=== PATIENT | female | born 1995 | race Caucasian/White ===

== ENCOUNTER → 2016-09-22 | Outpatient (REF) | payer OTHER, MEDICAID | END | disposition home or self-care (01) | LOC: M LAB REF 16:49 | PROVIDERS: ATTEND Advanced Practice Midwife | DX: Z34.81 Encounter for supervision of other normal pregnancy, first trimester (principal); Z36 Encounter for antenatal screening of mother; Z3A.00 Weeks of gestation of pregnancy not specified ==

== ENCOUNTER → 2016-10-16 | Outpatient (REF) | payer OTHER, MEDICAID | LOC: M LAB REF 17:00 | PROVIDERS: ATTEND Specialist | DX: Z34.82 Encounter for supervision of other normal pregnancy, second trimester (principal); Z36 Encounter for antenatal screening of mother; Z3A.00 Weeks of gestation of pregnancy not specified ==

== ENCOUNTER 2016-10-23 04:40 | Emergency (ER) | payer MEDICAID, OTHER ==
--- NOTE | 2016-10-23 06:00 | REPUSA ---
CLINICAL HISTORY: Pelvic pain. TECHNIQUE: Realtime sonographic images were obtained in multiple projections via TA approach. The exa mination was performed by the semi truck driver and still images were submitted for interpretation. COMMENTS: A single, live intrauterine gestation. Biparietal diameter 3.4 cm. 16 weeks and 3 days. Head circumference 12.4 cm. 16 weeks and one day. Abdominal circumference 10 cm. 16 weeks. Femoral length 2.1 cm. 16 weeks and 2 days. Humeral length 2 cm. 16 weeks and 5 days. heart rate 152 beats per minute. Cervical length 3.6 cm. Estimated weight 148 g. Breech presentation. No evidence of placenta previa or placental abruption. Posterior/fundal placenta. Evaluation of the maternal adnexa and cul-de-sac reveals no abnormalities. IMPRESSION: Single, live intrauterine gestation. No abnormality is seen. Estimated gestation age 16 weeks and one day. Estimated delivery date on . Thank you for your kind referral of this patient.
[2016-10-23] MEDS ORDERED: cefTRIAXone SOD 1 GM VIAL (J0696) As Ordered ONE (06:41)
[2016-10-23] MEDS ORDERED: LIDOCAINE 1% MDV 20ML VIAL As Ordered ONE (06:42)
--- NOTE | 2016-10-23 07:31 | EDDOCDS ---
Physician Documentation [facility] Name: Anastacia Lovell Age: 21 yrs Sex: Female : 1995 Arrival Date: 10/23/2016 Time: 04:40 Bed 7 Private MD: Disposition: 10/23/16 06:26 Discharged to Home/Self Care. Impression: Urinary tract infection, site not specified. - Condition is Stable. - Prescriptions for Keflex 500 mg Oral Capsule - take 1 capsule by ORAL route every 6 hours for 10 days; 40 capsule. - Medication Reconciliation, Local Pharmacy Hours form. - Follow up: Private Physician; When: 1 - 2 days; Reason: Recheck today's complaints. - Problem is an ongoing problem. - Symptoms have improved. Historical: - Allergies: no known allergies; - Home Meds: 1. Vitamin Oral tab 1 tab once daily - PMHx: none; - PSHx: none; - Social history: Smoking status: Patient states former smoker of tobacco. No barriers to communication noted, The patient speaks fluent Swedish, Speaks appropriately for age. - Family history: Not pertinent. - : The pt / caregiver states he / she is not on anticoagulants. Home medication list is obtained from the patient. - Exposure Risk Screening:: None identified. 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 2 in. (157.48 cm); Pain 7/10; 06:28 BP 115 / 56; Pulse 72; Resp 18; Temp 97.9(TE); Pulse Ox 100% on R/A; Pain 0/10; mikael 04:46 Body Mass Index 36.58 (90.72 kg, 157.48 cm) kc3 MDM: 05:08 US OBS JOANA LUJAN Ordered. EDMS 05:52 Financial registration complete. hs2 05:52 [facility] Payment Agreement was scanned into [employer] and attached to record. hs2 06:19 cefTRIAXone 1 grams IM once ordered. cs11 Administered Medications: 06:51 Drug: cefTRIAXone 1 grams [ceftriaxone 1 gram solution for injection (1 grams)] Route: kmg1 IM; Site: left gluteus; Signatures: Dispatcher [employer] EDMS Sonia Sierra RN RN kmg1 Socrates HutchinsRN RN zoëk Ciaran Diaz, DO cs11 Zeynep EasleyRN RN kc3 Janene Ratliff, Reg Reg hs2 The chart was reviewed and I authenticate all verbal orders and agree with the evaluation and treatment provided.Corrections: (The following items were deleted from the chart) 05:08 05:05 1ST TRIMESTER US+US ordered. EDMS EDMS Attachments: 05:52 [facility] Payment Agreement hs2 MTDD
--- NOTE | 2016-10-23 07:31 | EDDOCDS ---
Nurse's Notes [facility] Name: Anastacia Lovell Age: 21 yrs Sex: Female : 1995 Arrival Date: 10/23/2016 Time: 04:40 Bed 7 Private MD: Diagnosis: Urinary tract infection, site not specified Presentation: 10/23 04:47 Presenting complaint: Patient states: left low back pain x 2 days worsening 1 hour lpta. kc3 Pt reports was also seen by OB and started on Bactrim on Sunday but reports has not started taking medication yet. Adult Sepsis Screening: The patient does not have new or worsening altered mentation. Patient's respiratory rate is less than 22. Systolic blood pressure is greater than 100. Patient has a qSOFA score of 0- Negative Sepsis Screen. Suicide/Homicide risk assessment- the patient denies having any suicidal and/or homicidal ideations and does not present with any other emotional, behavioral or mental health complaints. 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 Transition of care: patient was not received from another setting of care. 04:47 Acuity: ALBERTO Level 4 kc3 04:47 Method Of Arrival: Walkin/Carried/Asstd kc3 Triage Assessment: 04:50 General: Appears uncomfortable, Behavior is appropriate for age, cooperative. Pain: kc3 Location: low back area Pain currently is 7 out of 10 on a pain scale. HIV screening NA for this visit Offered previously. Respiratory: No deficits noted. 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 Vitamin Oral tab 1 tab once daily - PMHx: none; - PSHx: none; - Social history: Smoking status: Patient states former smoker of tobacco. No barriers to communication noted, The patient speaks fluent Luxembourgish, Speaks appropriately for age. - Family history: Not pertinent. - : The pt / caregiver states he / she is not on anticoagulants. Home medication list is obtained from the patient. - Exposure Risk Screening:: None identified. Screenin:00 Screening information is obtained from the patient. Fall risk: No risks identified. kmg1 Assistance ADL's: requires no assistance with activities of daily living. Abuse/DV Screen: The patient / caregiver reports he/she is: not in a situation that causes fear, pain or injury. Nutritional screening: No deficits noted. Advance Directives: There is no active DNR order. home support is adequate. Assessment: 05:00 General: Appears in no apparent distress, comfortable, Behavior is appropriate for age, kmg1 cooperative, pleasant. Pain: Location: low back area Pain currently is 7 out of 10 on a pain scale. Respiratory: Airway is patent Respiratory effort is even, unlabored, Respiratory pattern is regular, symmetrical. : Reports urgency urinary frequency. 06:12 Reassessment: Patient appears in no apparent distress at this time. Patient states km symptoms have not improved. No change in prior assessment. General:. 07:25 General: Appears in no apparent distress. [facility] Vital Signs: 04:46 BP 128 / 75; Pulse 87; Resp 18; Temp 97.3(O); Pulse Ox 98% on R/A; Weight 90.72 kg; kc3 Height 5 ft. 2 in. (157.48 cm); Pain 7/10; 06:28 BP 115 / 56; Pulse 72; Resp 18; Temp 97.9(TE); Pulse Ox 100% on R/A; Pain 0/10; mikael 04:46 Body Mass Index 36.58 (90.72 kg, 157.48 cm) [facility] Vitals: 04:46 Log In Time: October 23, 2016 at 04:46. [facility] ED Course: 04:41 Patient visited by Janene Ratliff Reg. hs2 04:41 Patient moved to Waiting hs2 04:50 Triage Initiated kc3 04:51 Patient moved to 7 [facility] 05:00 The patient / caregiver is instructed regarding the plan of care and ED course. kmg1 05:06 Ciaran Diaz DO is Attending Physician. cs11 05:06 Patient visited by Ciaran Diaz DO. cs11 05:08 Patient moved to Ultrasound dmg 05:29 Patient moved to 7 dmg 05:52 [facility] Payment Agreement was scanned into [employer] and attached to record. hs2 06:00 US OBS JOANA LUJAN Returned. EDMS 06:13 Patient visited by Sonia Sierra, SLIME. kmg1 06:29 Patient visited by Lucie Cole PCA. mikael 06:51 Patient visited by Sonia Sierra RN. kmg1 07:25 No IV's were initiated during this patient's visit. No procedures done that require k assistance. Administered Medications: 06:51 Drug: cefTRIAXone 1 grams [ceftriaxone 1 gram solution for injection (1 grams)] Route: kmg1 IM; Site: left gluteus; Order Results: Radiology Order: US OBS SINGEL GEST Test: US OBS SINGEL GEST REASON FOR EXAMINATION: Abdomen Pain; ; CLINICAL HISTORY: Pelvic pain.; TECHNIQUE: Realtime sonographic images were obtained in multiple projections via TA approach. The exa; mination was performed by the federal java developer and still images were submitted for interpretation.; COMMENTS:; A single, live intrauterine gestation.; Biparietal diameter 3.4 cm. 16 weeks and 3 days.; Head circumference 12.4 cm. 16 weeks and one day.; Abdominal circumference 10 cm. 16 weeks.; Femoral length 2.1 cm. 16 weeks and 2 days.; Humeral length 2 cm. 16 weeks and 5 days.; heart rate 152 beats per minute.; Cervical length 3.6 cm.; Estimated weight 148 g.; Breech presentation.; No evidence of placenta previa or placental abruption.; Posterior/fundal placenta.; Evaluation of the maternal adnexa and cul-de-sac reveals no abnormalities.; IMPRESSION:; Single, live intrauterine gestation.; No abnormality is seen.; Estimated gestation age 16 weeks and one day. Estimated delivery date on .; Thank you for your kind referral of this patient.; ; Outcome: 06:26 Discharge ordered by Provider. cs11 07:25 Discharge Assessment: Patient awake, alert and oriented x 3. No cognitive and/or k functional deficits noted. Patient verbalized understanding of disposition instructions. patient administered narcotics - no. The following High Risk Discharge criteria are identified: None. Discharged to home ambulatory. Condition: good. Discharge instructions given to patient, Instructed on discharge instructions, follow up and referral plans. medication usage, Demonstrated understanding of instructions, medications, Pt was receptive of discharge instructions/ teaching. Prescriptions given X 1. No special radiology studies were completed. Property :Personal belongings accompany Pt. 07:31 Patient left the ED. rena Signatures: Dispatcher [facility] Sonia Sierra RN RN kmSocrates Romeo RN RN Catia Zelaya, Lucie, LITHOGRAPH OPERATOR LITHOGRAPH OPERATOR mikael Ciaran Diaz, DO DO cs11 Zeynep Easley,RN RN kc3 Janene Ratliff, Reg Reg hs2 MTDD
--- NOTE | 2016-10-25 08:32 | EDDOCDS ---
Physician Documentation [facility] Name: Anastacia Lovell Age: 21 yrs Sex: Female : 1995 Arrival Date: 10/23/2016 Time: 04:40 Bed 7 Private MD: Disposition: 10/23/16 06:26 Discharged to Home/Self Care. Impression: Urinary tract infection, site not specified. - Condition is Stable. - Prescriptions for Keflex 500 mg Oral Capsule - take 1 capsule by ORAL route every 6 hours for 10 days; 40 capsule. - Medication Reconciliation, Local Pharmacy Hours form. - Follow up: Private Physician; When: 1 - 2 days; Reason: Recheck today's complaints. - Problem is an ongoing problem. - Symptoms have improved. Historical: - Allergies: no known allergies; - Home Meds: 1. Vitamin Oral tab 1 tab once daily - PMHx: none; - PSHx: none; - Social history: Smoking status: Patient states former smoker of tobacco. No barriers to communication noted, The patient speaks fluent Namibian, Speaks appropriately for age. - Family history: Not pertinent. - : The pt / caregiver states he / she is not on anticoagulants. Home medication list is obtained from the patient. - Exposure Risk Screening:: None identified. MOTORIZED SQUAD LIEUTENANT: 10/23 04:46 Verified kc3 Vital Signs: 04:46 BP 128 / 75; Pulse 87; Resp 18; Temp 97.3(O); Pulse Ox 98% on R/A; Weight 90.72 kg / kc3 200 lbs; Height 5 ft. 2 in. (157.48 cm); Pain 7/10; 06:28 BP 115 / 56; Pulse 72; Resp 18; Temp 97.9(TE); Pulse Ox 100% on R/A; Pain 0/10; mikael 04:46 Body Mass Index 36.58 (90.72 kg, 157.48 cm) kc3 MDM: 05:08 US OBS JOANA LUJAN Ordered. EDMS 05:52 Financial registration complete. hs2 05:52 ON LICENSE OF [facility] Payment Agreement was scanned into [employer] and attached to record. hs2 06:19 cefTRIAXone 1 grams IM once ordered. cs11 Administered Medications: 06:51 Drug: cefTRIAXone 1 grams [ceftriaxone 1 gram solution for injection (1 grams)] Route: kmg1 IM; Site: left gluteus; Signatures: Dispatcher [employer] EDMS Sonia Sierra RN RN kmg1 Socrates HutchinsRN RN zoëk Ciaran Diaz, DO cs11 Zeynep EasleyRN RN kc3 Janene Ratliff, Reg Reg hs2 The chart was reviewed and I authenticate all verbal orders and agree with the evaluation and treatment provided.Corrections: (The following items were deleted from the chart) 05:08 05:05 1ST TRIMESTER US+US ordered. EDMS EDMS Attachments: 05:52 ON LICENSE OF [facility] Payment Agreement hs2 Chart Complete MTDD
--- NOTE | 2016-10-25 08:32 | EDDOCDS ---
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 kc3 Pt reports was also seen by OB and started on Bactrim on Sunday but reports has not started taking medication yet. Adult Sepsis Screening: The patient does not have new or worsening altered mentation. Patient's respiratory rate is less than 22. Systolic blood pressure is greater than 100. Patient has a qSOFA score of 0- Negative Sepsis Screen. Suicide/Homicide risk assessment- the patient denies having any suicidal and/or homicidal ideations and does not present with any other emotional, behavioral or mental health complaints. Status: Patient is not a marketing services rep or dependent. Transition of care: patient was not received from another setting of care. 04:47 Acuity: ALBERTO Level 4 kc3 04:47 Method Of Arrival: Walkin/Carried/Asstd kc3 Triage Assessment: 04:50 General: Appears uncomfortable, Behavior is appropriate for age, cooperative. Pain: kc3 Location: low back area Pain currently is 7 out of 10 on a pain scale. HIV screening NA for this visit Offered previously. Respiratory: No deficits noted. GROOVER RUNNER: 04:46 Verified kc3 Historical: - Allergies: no known allergies; - Home Meds: 1. Vitamin Oral tab 1 tab once daily - PMHx: none; - PSHx: none; - Social history: Smoking status: Patient states former smoker of tobacco. No barriers to communication noted, The patient speaks fluent Turkish, Speaks appropriately for age. - Family history: Not pertinent. - : The pt / caregiver states he / she is not on anticoagulants. Home medication list is obtained from the patient. - Exposure Risk Screening:: None identified. Screenin:00 Screening information is obtained from the patient. Fall risk: No risks identified. kmg1 Assistance ADL's: requires no assistance with activities of daily living. Abuse/DV Screen: The patient / caregiver reports he/she is: not in a situation that causes fear, pain or injury. Nutritional screening: No deficits noted. Advance Directives: There is no active DNR order. home support is adequate. Assessment: 05:00 General: Appears in no apparent distress, comfortable, Behavior is appropriate for age, kmg1 cooperative, pleasant. Pain: Location: low back area Pain currently is 7 out of 10 on a pain scale. Respiratory: Airway is patent Respiratory effort is even, unlabored, Respiratory pattern is regular, symmetrical. : Reports urgency urinary frequency. 06:12 Reassessment: Patient appears in no apparent distress at this time. Patient states km symptoms have not improved. No change in prior assessment. General:. 07:25 General: Appears in no apparent distress. [facility] Vital Signs: 04:46 BP 128 / 75; Pulse 87; Resp 18; Temp 97.3(O); Pulse Ox 98% on R/A; Weight 90.72 kg; kc3 Height 5 ft. 2 in. (157.48 cm); Pain 7/10; 06:28 BP 115 / 56; Pulse 72; Resp 18; Temp 97.9(TE); Pulse Ox 100% on R/A; Pain 0/10; mikael 04:46 Body Mass Index 36.58 (90.72 kg, 157.48 cm) [facility] Vitals: 04:46 Log In Time: October 23, 2016 at 04:46. [facility] ED Course: 04:41 Patient visited by Janene Ratliff Reg. hs2 04:41 Patient moved to Waiting hs2 04:50 Triage Initiated kc3 04:51 Patient moved to 7 [facility] 05:00 The patient / caregiver is instructed regarding the plan of care and ED course. kmg1 05:06 Ciaran Diaz DO is Attending Physician. cs11 05:06 Patient visited by Ciaran Diaz DO. cs11 05:08 Patient moved to Ultrasound dmg 05:29 Patient moved to 7 dmg 05:52 [facility] [place] [facility] Payment Agreement was scanned into [employer] and attached to record. hs2 06:00 US OBS JOANA LUJAN Returned. EDMS 06:13 Patient visited by Sonia Sierra, SLIME. kmg1 06:29 Patient visited by Lucie Cole PCA. mikael 06:51 Patient visited by Sonia Sierra RN. kmg1 07:25 No IV's were initiated during this patient's visit. No procedures done that require k assistance. Administered Medications: 06:51 Drug: cefTRIAXone 1 grams [ceftriaxone 1 gram solution for injection (1 grams)] Route: kmg1 IM; Site: left gluteus; Order Results: Radiology Order: US OBS SINGEL GEST Test: US OBS SINGEL GEST REASON FOR EXAMINATION: Abdomen Pain; ; CLINICAL HISTORY: Pelvic pain.; TECHNIQUE: Realtime sonographic images were obtained in multiple projections via TA approach. The exa; mination was performed by the transportation officer and still images were submitted for interpretation.; COMMENTS:; A single, live intrauterine gestation.; Biparietal diameter 3.4 cm. 16 weeks and 3 days.; Head circumference 12.4 cm. 16 weeks and one day.; Abdominal circumference 10 cm. 16 weeks.; Femoral length 2.1 cm. 16 weeks and 2 days.; Humeral length 2 cm. 16 weeks and 5 days.; heart rate 152 beats per minute.; Cervical length 3.6 cm.; Estimated weight 148 g.; Breech presentation.; No evidence of placenta previa or placental abruption.; Posterior/fundal placenta.; Evaluation of the maternal adnexa and cul-de-sac reveals no abnormalities.; IMPRESSION:; Single, live intrauterine gestation.; No abnormality is seen.; Estimated gestation age 16 weeks and one day. Estimated delivery date on .; Thank you for your kind referral of this patient.; ; Outcome: 06:26 Discharge ordered by Provider. cs11 07:25 Discharge Assessment: Patient awake, alert and oriented x 3. No cognitive and/or k functional deficits noted. Patient verbalized understanding of disposition instructions. patient administered narcotics - no. The following High Risk Discharge criteria are identified: None. Discharged to home ambulatory. Condition: good. Discharge instructions given to patient, Instructed on discharge instructions, follow up and referral plans. medication usage, Demonstrated understanding of instructions, medications, Pt was receptive of discharge instructions/ teaching. Prescriptions given X 1. No special radiology studies were completed. Property :Personal belongings accompany Pt. 07:31 Patient left the ED. rena Signatures: Dispatcher [facility] Sonia Sierra RN RN kmSocrates Romeo RN RN Catia Zelaya, Lucie, GRAVITY PROSPECTING SUPERVISOR GRAVITY PROSPECTING SUPERVISOR mikael Ciaran Diaz, DO DO cs11 Zeynep Easley,RN RN kc3 Janene Ratliff, Reg Reg hs2 Chart Complete MTDD
--- NOTE | 2016-10-25 08:32 | EDDOCDS ---
Physician Documentation [facility] Name: Anastacia Lovell Age: 21 yrs Sex: Female : 1995 Arrival Date: 10/23/2016 Time: 04:40 Bed 7 Private MD: Disposition: 10/23/16 06:26 Discharged to Home/Self Care. Impression: Urinary tract infection, site not specified. - Condition is Stable. - Prescriptions for Keflex 500 mg Oral Capsule - take 1 capsule by ORAL route every 6 hours for 10 days; 40 capsule. - Medication Reconciliation, Local Pharmacy Hours form. - Follow up: Private Physician; When: 1 - 2 days; Reason: Recheck today's complaints. - Problem is an ongoing problem. - Symptoms have improved. Historical: - Allergies: no known allergies; - Home Meds: 1. Vitamin Oral tab 1 tab once daily - PMHx: none; - PSHx: none; - Social history: Smoking status: Patient states former smoker of tobacco. No barriers to communication noted, The patient speaks fluent Hungarian, Speaks appropriately for age. - Family history: Not pertinent. - : The pt / caregiver states he / she is not on anticoagulants. Home medication list is obtained from the patient. - Exposure Risk Screening:: None identified. GANG LEADER: 10/23 04:46 Verified kc3 Vital Signs: 04:46 BP 128 / 75; Pulse 87; Resp 18; Temp 97.3(O); Pulse Ox 98% on R/A; Weight 90.72 kg / kc3 200 lbs; Height 5 ft. 2 in. (157.48 cm); Pain 7/10; 06:28 BP 115 / 56; Pulse 72; Resp 18; Temp 97.9(TE); Pulse Ox 100% on R/A; Pain 0/10; mikael 04:46 Body Mass Index 36.58 (90.72 kg, 157.48 cm) kc3 MDM: 05:08 US OBS JOANA LUJAN Ordered. EDMS 05:52 Financial registration complete. hs2 05:52 [facility] Payment Agreement was scanned into [employer] and attached to record. hs2 06:19 cefTRIAXone 1 grams IM once ordered. cs11 Administered Medications: 06:51 Drug: cefTRIAXone 1 grams [ceftriaxone 1 gram solution for injection (1 grams)] Route: kmg1 IM; Site: left gluteus; Signatures: Dispatcher [employer] EDMS Sonia Sierra RN RN kmg1 Socrates HutchinsRN RN zoëk Ciaran Diaz, DO cs11 Zeynep EasleyRN RN kc3 Janene Ratliff, Reg Reg hs2 The chart was reviewed and I authenticate all verbal orders and agree with the evaluation and treatment provided.Corrections: (The following items were deleted from the chart) 05:08 05:05 1ST TRIMESTER US+US ordered. EDMS EDMS Attachments: 05:52 [facility] Payment Agreement hs2 Chart Complete MTDD
== END 2016-10-23 07:31 | disposition home or self-care (01) ==
LOC: M ED 04:40
DX: O23.42 Unspecified infection of urinary tract in pregnancy, second trimester (principal); Z3A.17 17 weeks gestation of pregnancy; Z87.891 Personal history of nicotine dependence

== ENCOUNTER → 2016-11-13 | Outpatient (REF) | payer OTHER | LOC: M LAB REF 09:27 | PROVIDERS: ATTEND Specialist | DX: Z34.82 Encounter for supervision of other normal pregnancy, second trimester (principal); Z36 Encounter for antenatal screening of mother; Z3A.00 Weeks of gestation of pregnancy not specified ==

== ENCOUNTER → 2016-11-16 | Outpatient (CLI) | payer OTHER ==
--- NOTE | 2016-11-16 15:39 | REP ---
OB ULTRASOUND: Real-time sonographic evaluation of the gravid uterus is performed utilizing transabdominal and endovaginal technique. There is a single living intrauterine gestation, estimated gestational age 19 weeks 5 days, EDC 04/07/2017. Today's measurements indicate appropriate growth. BPD 46 mm = 20 weeks 0 days, 57th percentile HC 176 mm = 20 weeks 0 days, 61st percentile AC 150 mm = 20 weeks 2 days, 62nd percentile Femur length 32 mm = 20 weeks 0 days, 57th percentile SEEN/GROSSLY UNREMARKABLE Lateral ventricles Yes Posterior fossa Yes Upper lip Yes Four-chamber heart Yes echogenic focus in the left ventricle likely related to chordae tendineae LVOT Yes RVOT Yes Stomach Yes Cord insertion Yes Three vessel cord Yes Kidneys Yes Bladder Yes Spine Yes position: Transverse with the head towards the maternal left side. Placenta: Posterior and fundal and grade 0 with no previa or abruption. Amniotic fluid: Within normal limits. There is no evidence of placenta previa or vasa previa. Signed by Anshu Norris MD 11/17/2016 01:19 P
== END ==
LOC: M RAD 13:36
PROVIDERS: ATTEND Specialist
DX: Z34.82 Encounter for supervision of other normal pregnancy, second trimester (principal); Z36 Encounter for antenatal screening of mother; Z3A.20 20 weeks gestation of pregnancy

== ENCOUNTER → 2016-11-28 | Outpatient (REF) | payer OTHER | LOC: M SFHCLERA 12:42 | PROVIDERS: ATTEND Nurse Practitioner Family | DX: J02.9 Acute pharyngitis, unspecified (principal) ==

== ENCOUNTER → 2016-12-20 | Outpatient (REF) | payer OTHER | LOC: M LAB REF 16:58 | PROVIDERS: ATTEND Obstetrics & Gynecology | DX: Z34.82 Encounter for supervision of other normal pregnancy, second trimester (principal); Z36 Encounter for antenatal screening of mother; Z3A.00 Weeks of gestation of pregnancy not specified; R30.0 Dysuria ==

== ENCOUNTER → 2017-01-09 | Outpatient (CLI) | payer OTHER ==
[2017-01-09 18:15] LABS: BASO % 0.1 % (0.0-1.0); EOS # 0.1 K/mm3 (0.0-0.50); LARGE UNSTAINED CELL # 0.1 K/mm3 (0.0-0.4); LARGE UNSTAINED CELL % 1.3 % (0.0-4.0); LYMPH # 1.4 K/mm3 (1.5-6.5); LYMPH % 16.1 % (24.0-44.0); MEAN CORPUSCULAR HEMOGLOBIN 28.9 pg (27.0-33.0); MEAN CORPUSCULAR HGB CONC 33.1 g/dl (32.0-36.5); MEAN CORPUSCULAR VOLUME 87.1 fl (80.0-96.0); MONO # 0.4 K/mm3 (0.0-0.8); MONO % 4.4 % (0.0-5.0); NEUTROPHILS # 6.9 K/mm3 (1.8-7.7); PLATELET COUNT, AUTOMATED 350 k/mm3 (150-450); RED CELL DISTRIBUTION WIDTH 12.8 % (11.5-14.5); WHITE BLOOD COUNT 8.9 K/mm3 (4.0-10.0)
== END ==
LOC: M SMT 13:13
PROVIDERS: ATTEND Advanced Practice Midwife
DX: Z34.83 Encounter for supervision of other normal pregnancy, third trimester (principal); Z36 Encounter for antenatal screening of mother; Z3A.00 Weeks of gestation of pregnancy not specified

== ENCOUNTER 2017-03-04 14:13 | Outpatient (CLI) | payer OTHER ==
--- NOTE | 2017-03-04 17:08 | REP ---
Clinical: well-being. Comparison: 11/16/2016 . Findings: Examination demonstrates a single live advanced intrauterine in cephalic presentation. motion is identified by technologist. Placenta is noted posterior fundally and grade zero without evidence for placenta previa or abruption. Amniotic fluid volume is normal. Cervix measures 4.9 cm in length and appears closed. No evidence for nuchal cord. Gestational age by LMP 35 weeks 1 day with KJ 04/07/2017 . Gestational age by current measurements 35 weeks 1 day with KJ 04/07/2017 . FHR varied between 108 - 136 beats per minute. BPD 8.7 cm 35 weeks 1 day HC 31.3 cm 35 weeks 0 days AC 31.4 cm 35 weeks 2 days FL 6.8 cm 35 weeks 0 days HL 6.0 cm 35 weeks 0 days HC/AC ratio 1.00 Estimated weight 2614 grams ( 50th percentile). Biophysical profile score equals 8/8. Amniotic fluid index equals 16.2 cm (7.9 - 24.9). Umbilical cord SD ratio equals 2.13 Impression: Single live advanced gestation in cephalic presentation demonstrating appropriate interval growth. No gross abnormalities. Findings as above. Signed by Kashif Bradley MD 03/04/2017 05:00 P
== END 2017-03-04 17:30 | disposition home or self-care (01) ==
LOC: EDBD → M LDO 14:13
PROVIDERS: ATTEND Advanced Practice Midwife
DX: O26.853 Spotting complicating pregnancy, third trimester (principal); Z3A.35 35 weeks gestation of pregnancy

== ENCOUNTER 2017-04-03 20:51 | Outpatient (CLI) | payer OTHER ==
[~2017-04-03] VITALS: Ht 157.5 cm; Wt 95.0 kg
[2017-04-03 21:00] VITALS: BP 116/68
== END 2017-04-03 21:40 | disposition home or self-care (01) ==
LOC: M LDO 20:51 → EDBD 20:51 → M LDO 21:40
PROVIDERS: ATTEND Obstetrics & Gynecology
DX: O47.1 False labor at or after 37 completed weeks of gestation (principal); Z3A.39 39 weeks gestation of pregnancy

== ENCOUNTER 2017-04-08 22:02 | Inpatient (IN) | payer OTHER ==
[~2017-04-08] VITALS: Ht 157.5 cm; Wt 96.0 kg
[~2017-04-08 22:02] MED LIST: hydrOXYzine 50 MG TAB PO SCH
[2017-04-08 22:12] VITALS: BP 121/76
[2017-04-08] MEDS ORDERED: PENICILLIN G POTASSIUM IV 5 MU in D5W MINI-BAG PLUS 100 ML IV STA (22:25)
[2017-04-08] MEDS ORDERED: LACTATED RINGER'S 1000 ML IV STA (22:25)
[2017-04-08] MEDS ORDERED: LR 1,000 ML IV SCH (22:25)
[2017-04-08] MEDS ORDERED: miSOPROStol 50 MCG 1/2 TAB (S0191) PO ONE (22:30)
[2017-04-08 22:43] LABS: MEAN CORPUSCULAR HEMOGLOBIN 26.8 pg (27.0-33.0); MEAN CORPUSCULAR HGB CONC 32.9 g/dl (32.0-36.5); MEAN CORPUSCULAR VOLUME 81.5 fl (80.0-96.0); RED CELL DISTRIBUTION WIDTH 14.3 % (11.5-14.5); WHITE BLOOD COUNT 9.4 K/mm3 (4.0-10.0)
[2017-04-08 22:54] VITALS: BP 121/78
[2017-04-08 23:24] VITALS: BP 117/68
[2017-04-08 23:54] VITALS: BP 119/74
[2017-04-09] VITALS (41 sets, daily range): BP systolic 92–144; BP diastolic 53–90
[2017-04-09] MEDS: PENICILLIN G POTASSIUM IV 2.5 MU in D5W 100 ML IV SCH ×3 (02:58→11:12)
[2017-04-09] MEDS ORDERED: BUTORPHANOL 2 MG/ML INJ (J0595) IV PRN (03:30)
[2017-04-09] MEDS ORDERED: OXYTOCIN DRIP 30 UNITS in APPROPRIATE DILUENT 1 EA IV SCH ×2 (03:30→17:11)
[2017-04-09] MEDS ORDERED: PROMETHAZINE INJ 25 MG/ML VIAL (J2550) IV PRN (03:30)
[2017-04-09] MEDS ORDERED: FENTANYL 2MCG/ML ROPIVACAINE 0.2% IN 0.9% NACL 200ML IVBAG As Ordered ONE (05:31)
[2017-04-09] MEDS ORDERED: FENTANYL/ROPIVACAINE/NACL BAG 200 ML EPIDURAL SCH (08:30)
[2017-04-09] MEDS ORDERED: EPIDURAL/PCA KEYS XX PRN (08:30)
[2017-04-09] MEDS ORDERED: REFRIGERATOR IV KEYS XX PRN (08:30)
[2017-04-09] MEDS ORDERED: ONDANSETRON 4MG/2ML VIAL (J2405) IV PRN (08:30)
[2017-04-09] MEDS ORDERED: diphenhydrAMINE INJ 50MG/ML VIAL (J1200) IV PRN (08:30)
[2017-04-09] MEDS ORDERED: LACTATED RINGER'S 1000 ML IV PRN (08:30)
[2017-04-09] MEDS ORDERED: EPIDURAL COMMENT XX SCH (08:30)
[2017-04-09] MEDS ORDERED: NALOXONE INJ 0.4 MG/1 ML VIAL (J2310) IV PRN (08:30)
[2017-04-09] MEDS ORDERED: ePHEDrine SULFATE 25 MG/5 ML(5MG/ML) SYRINGE IV PRN (08:30)
--- NOTE | 2017-04-09 08:51 | HPE ---
DATE OF ADMISSION: 04/08/2017 HISTORY: 22-year-old, 4, para 0-0-3-0, estimated date of delivery 04/07/2017, who presents at 40 weeks 1 day with reports contractions through the day and spontaneous rupture of membranes of clear fluid at 2130. Denies bleeding. Fetus is active. Last normal menstrual period 07/01/2016 for expected date of delivery (KJ) of 04/07/2017. Sonogram at 9 weeks confirmed date. Anatomy scan within normal limits. Appropriate care. OBSTETRICAL HISTORY: 2011: Early miscarriage. 2013: Early miscarriage. 2014: Ectopic. She has no known drug allergies. MEDICAL-SURGICAL: Noncontributory. FAMILY HISTORY: Thyroid dysfunction. Mental retardation. SOCIAL HISTORY: . Father of the baby present and supportive. Denies tobacco, alcohol, drugs or abuse. History of Chlamydia. OBJECTIVE: Prepregnancy weight 180, total weight gain 35 pounds. O positive. Antibody negative. Rubella immune. VDRL, hepatitis B, hepatitis C, HIV, gonorrhea, Chlamydia all negative. Declined genetic screening. 1-hour glucose 106. Group B strep is positive. Vital signs are stable. She is in no apparent distress. Heart rate is regular. Respirations are easy. Abdomen is soft, gravid, longitudinal lie. Irregular contractions. heart 120, moderate variability with accelerations. Clear fluid draining per vagina. Sterile Vaginal Exam: 1 cm, 80% effaced, -2. ASSESSMENT: Primipara at term, premature rupture of membranes (PROM), category 1 tracing. Admit. IV fluids. Group B strep prophylaxis. Misoprostol cervical ripening. The patient plans to labor ad ester. Anticipate normal spontaneous vaginal .
[2017-04-09] MEDS ORDERED: RHOGAM 300 MCG (1500 IU) INJ (J2790) IM SCH (09:00)
[2017-04-09] MEDS ORDERED: MEASLES,MUMPS,RUBELLA VACCINE INJ (MMR-II) (90707) SC SCH (09:00)
[2017-04-09 16:55] LABS: CORD GAS ABE A -5.5; CORD GAS HCO3 A 24.9 MEQ/L; CORD GAS O2 SAT A 31.4 %; CORD GAS PCO2 A 71.1 mmHg; CORD GAS PH A 7.162 UNITS; CORD GAS PO2 A 19.4 mmHg; CORD GAS SBC A 18.4 MEQ/L; CORD GAS TCO2 A 27.1 MEQ/L
[2017-04-09 16:59] LABS: CORD GAS HCO3 V 19.6 MEQ/L; CORD GAS O2 SAT V 66.4 %; CORD GAS PH V 7.318 UNITS; CORD GAS PO2 V 30.1 mmHg; CORD GAS SBC V 18.9 MEQ/L; CORD GAS TCO2 V 20.7 MEQ/L
[2017-04-09] MEDS ORDERED: DIBUCAINE 1% OINTMENT 30GM TOP PRN (17:15)
[2017-04-09] MEDS ORDERED: MOM 30ML SUSPENSION UDC PO PRN (17:15)
[2017-04-09] MEDS ORDERED: METHYLERGONOVINE MALEATE 0.2 MG TAB PO PRN (17:15)
--- NOTE | 2017-04-09 17:49 | DN ---
DATE OF DELIVERY: 04/09/2017 TIME OF DELIVERY: 1625 hours. GENDER: Male SCORES: 8 and 9. WEIGHT: 3610 grams, 7 pounds 15 ounces. ESTIMATED BLOOD LOSS: 250 mL. ANESTHESIA: Epidural. LACERATIONS: Two first degree lateral perineal lacerations, one periurethral laceration. COUNTS: Five laparotomy sponges accounted for prior to and after delivery. Three sharps removed from delivery field. DELIVERY NOTE: On 04/09/2017 at 1625 hours, this patient, a 22-year-old 4, para 0-0-3-0, now P1, had a spontaneous vaginal delivery of a live-born male with scores of 8 and 9. Weight was 3610 grams or 7 pounds 15 ounces. Head was delivered right occiput anterior and restituted right occiput posterior, followed by the posterior shoulder and corpus, complicated by a right compound hand. The was then placed on mom for immediate bonding. The cord was clamped times two and cut by father of the baby under my direction. Cord blood and gases were obtained. The placenta was then drained and delivered grossly intact by Cast mechanism at 1634 hours. A premixed bag of 500 mL normal saline with 30 units of Pitocin was then rapidly infused along with uterine massage until the uterus was firm. On inspection, there were two first degree midline lacerations on the lateral sides of the perineum, which were repaired with 3-0 Vicryl Rapide. There was also a periurethral laceration repaired with 3-0 Vicryl Rapide. On re-inspection of the cervix, vagina and perineum were grossly intact and hemostatic. Mom and baby were recovering in stable condition. All laparotomy sponges and sharps were accounted for prior to and after delivery , according to [employer] [facility] department protocol. My preceptor for this patient encounter was Vickie Arriola CNM. The preceptor was physically present in the room during the encounter and was fully available as needed. All aspects of the patient interview, examination, medical decision-making process, and medical care plan development were reviewed and approved by the preceptor. The preceptor is aware and concurs with the plan as stated in the body of this note and will attest to such by his/her co-signature. MIAN
[2017-04-09] MEDS: PRENATAL VITAMINS CHEWABLE TABLET PO SCH (19:34)
[2017-04-09] MEDS: DOCUSATE SODIUM 100 MG CAP PO PRN (19:34)
[2017-04-09] MEDS: IBUPROFEN 800 MG TAB PO PRN (19:35)
[2017-04-10 05:32] VITALS: BP 116/69
[2017-04-10] MEDS: PRENATAL VITAMINS CHEWABLE TABLET PO SCH (09:00)
[2017-04-10] MEDS: IBUPROFEN 800 MG TAB PO PRN ×2 (09:52→20:26)
[2017-04-10] MEDS: DOCUSATE SODIUM 100 MG CAP PO PRN (09:52)
[2017-04-10 18:13] VITALS: BP 109/70
[2017-04-10] MEDS: ACETAMINOPHEN 500 MG TAB PO PRN (20:26)
[2017-04-10 20:30] VITALS: BP 109/70
[2017-04-11] MEDS: ACETAMINOPHEN 500 MG TAB PO PRN (05:54)
[2017-04-11] MEDS: IBUPROFEN 800 MG TAB PO PRN (05:55)
[2017-04-11 06:22] VITALS: BP 99/62
[2017-04-11] MEDS: PRENATAL VITAMINS CHEWABLE TABLET PO SCH (08:26)
[2017-04-11] MEDS ORDERED: PRENTAB9 PO (09:32)
[2017-04-11] MEDS ORDERED: NUPE1OIN2 TOP (09:32)
[2017-04-11] MEDS ORDERED: ACET50TA PO ×2 (09:32)
[2017-04-11] MEDS ORDERED: IBUP-1114 PO (09:32)
== END 2017-04-11 10:20 | disposition home or self-care (01) | DRG 560 ==
LOC: M LDO 22:02 → M LDI 22:24 → M OBS 04-09 18:22
PROVIDERS: ADMIT Advanced Practice Midwife; ATTEND Advanced Practice Midwife
PROC: 10E0XZZ Delivery of Products of Conception, External Approach (ICD-10-PCS; principal; 2017-04-09)
PROC: 0HQ9XZZ Repair Perineum Skin, External Approach (ICD-10-PCS; 2017-04-09)
DX: O42.02 Full-term premature rupture of membranes, onset of labor within 24 hours of rupture (principal); O48.0 Post-term pregnancy; Z37.0 Single live birth; Z3A.40 40 weeks gestation of pregnancy; O70.0 First degree perineal laceration during delivery; O32.6XX0 Maternal care for compound presentation, not applicable or unspecified

== ENCOUNTER → 2017-08-14 | Outpatient (REF) | payer OTHER, MEDICAID ==
[~2017-08-14] MED LIST changes: +ACET50TA PO; +IBUP-1114 PO; +NUPE1OIN2 TOP; +PRENTAB9 PO; -hydrOXYzine 50 MG TAB PO SCH
== END ==
LOC: M LAB REF 17:36
PROVIDERS: ATTEND Advanced Practice Midwife
DX: Z12.4 Encounter for screening for malignant neoplasm of cervix (principal)

== ENCOUNTER 2018-05-21 13:50 | Emergency (ER) | payer OTHER, MEDICAID | END 2018-05-21 17:44 | disposition home or self-care (01) | LOC: M ED 13:50 | DX: S30.0XXA Contusion of lower back and pelvis, initial encounter (principal); W22.8XXA Striking against or struck by other objects, initial encounter; Y92.9 Unspecified place or not applicable; Y93.9 Activity, unspecified; Y99.0 Civilian activity done for income or pay | CPT/HCPCS: 71111 ==

== ENCOUNTER 2018-08-17 23:43 | Emergency (ER) | payer OTHER ==
[2018-08-18 01:36] LABS: CONTROL LINE HCG INT CTR LINE PRESENT; HCG, SERUM QUALITATIVE NEGATIVE (NEGATIVE)
[2018-08-18] MEDS: METHOCARBAMOL 750 MG TAB PO (01:52)
[2018-08-18] MEDS: IBUPROFEN 600 MG TAB PO (01:52)
== END 2018-08-18 02:34 | disposition home or self-care (01) ==
LOC: M ED 23:43
DX: S16.1XXA Strain of muscle, fascia and tendon at neck level, initial encounter (principal); S40.012A Contusion of left shoulder, initial encounter; S80.02XA Contusion of left knee, initial encounter; S20.219A Contusion of unspecified front wall of thorax, initial encounter; V49.9XXA Car occupant (driver) (passenger) injured in unspecified traffic accident, initial encounter; Y92.9 Unspecified place or not applicable; Y93.9 Activity, unspecified; Y99.9 Unspecified external cause status
CPT/HCPCS: 72125

== ENCOUNTER → 2018-10-08 | Outpatient (REF) | payer OTHER ==
[~2018-10-08] MED LIST changes: -ACET50TA PO; +IBUP-1022 PO; +MAPA500T2 PO; +ROBA500T PO
[2018-10-11 16:13] LABS: HPV HYBRID CAPTURE II Positive (Negative)
== END ==
LOC: M LAB REF 13:03
PROVIDERS: ATTEND Specialist
DX: Z12.4 Encounter for screening for malignant neoplasm of cervix (principal)

== ENCOUNTER → 2018-11-26 | Outpatient (REF) | payer OTHER | LOC: M LAB REF 13:10 | PROVIDERS: ATTEND Specialist | DX: R87.612 Low grade squamous intraepithelial lesion on cytologic smear of cervix (LGSIL) (principal) ==

== ENCOUNTER → 2018-12-03 | Outpatient (CLI) | payer OTHER ==
[2018-12-03 18:30] LABS: BASO % 0.4 % (0.0-1.0); EOS # 0.1 10^3/uL (0.0-0.50); HEMATOCRIT 35.8 % (36.0-47.0); HEMOGLOBIN 11.5 g/dl (12.0-15.5); LYMPH # 1.8 10^3/uL (1.5-6.5); LYMPH % 16.5 % (24.0-44.0); MEAN CORPUSCULAR HEMOGLOBIN 26.6 pg (27.0-33.0); MEAN CORPUSCULAR HGB CONC 32.1 g/dl (32.0-36.5); MEAN CORPUSCULAR VOLUME 82.9 fl (80.0-96.0); MONO # 0.8 10^3/uL (0.0-0.8); MONO % 7.7 % (0.0-5.0); NEUTROPHILS % 73.9 % (36.0-66.0); PLATELET COUNT, AUTOMATED 357 10^3/uL (150-450); RED BLOOD COUNT 4.32 10^6/uL (4.00-5.40); WHITE BLOOD COUNT 10.9 10^3/uL (4.0-10.0)
[2018-12-03 23:54] LABS: CHLAMYDIA DNA AMPLIFICATION NEGATIVE (NEGATIVE); GC DNA AMPLIFICATION NEGATIVE (NEGATIVE)
[2018-12-04 10:26] LABS: HIV 1&2 SCREEN CENTAUR NEGATIVE (NEGATIVE); RUBELLA IgG QUALITATIVE IMMUNE (IMMUNE)
== END ==
LOC: M SMT 13:53
PROVIDERS: ATTEND Specialist
DX: Z34.81 Encounter for supervision of other normal pregnancy, first trimester (principal); Z3A.08 8 weeks gestation of pregnancy

== ENCOUNTER → 2018-12-31 | Outpatient (REF) | payer OTHER | LOC: M LAB REF 13:03 | PROVIDERS: ATTEND Advanced Practice Midwife | DX: Z34.81 Encounter for supervision of other normal pregnancy, first trimester (principal); Z3A.00 Weeks of gestation of pregnancy not specified ==

== ENCOUNTER 2019-01-31 15:11 | Emergency (ER) | payer OTHER ==
[~2019-01-31] VITALS: Ht 157.5 cm; Wt 116.4 kg
[2019-01-31] MEDS ORDERED: ONDA4TAB5 PO (15:32)
[2019-01-31] MEDS ORDERED: ACETAMINOPHEN 325 MG TAB PO ONE (15:45)
[2019-01-31 16:08] LABS: HEMOGLOBIN 11.3 g/dl (12.0-15.5); MEAN CORPUSCULAR HEMOGLOBIN 27.4 pg (27.0-33.0); MEAN CORPUSCULAR HGB CONC 33.2 g/dl (32.0-36.5); MEAN CORPUSCULAR VOLUME 82.3 fl (80.0-96.0); PLATELET COUNT, AUTOMATED 294 10^3/uL (150-450); RED BLOOD COUNT 4.13 10^6/uL (4.00-5.40)
[2019-01-31 16:21] LABS: INR 1.05; PARTIAL THROMBOPLASTIN TIME 27.7 SECONDS (25.4-37.6); PROTHROMBIN TIME 13.8 SECONDS (12.1-14.4)
[2019-01-31 16:29] LABS: ALBUMIN 2.6 GM/DL (3.2-5.2); ALT/SGPT 18 U/L (12-78); BILIRUBIN,TOTAL 0.1 MG/DL (0.2-1.0); BLOOD UREA NITROGEN 10 MG/DL (7-18); CALCIUM LEVEL 8.1 MG/DL (8.5-10.1); CARBON DIOXIDE LEVEL 26 MEQ/L (21-32); CHLORIDE LEVEL 110 MEQ/L (98-107); CREATININE FOR GFR 0.46 MG/DL (0.55-1.30); GLOMERULAR FILTRATION RATE > 60.0 (>60); GLUCOSE, FASTING 118 MG/DL (70-100); POTASSIUM SERUM 3.6 MEQ/L (3.5-5.1); SODIUM LEVEL 142 MEQ/L (136-145); TOTAL PROTEIN 5.9 GM/DL (6.4-8.2)
[2019-01-31 18:08] VITALS: BP 120/68
--- NOTE | 2019-02-01 07:53 | REP ---
LIMITED OB ULTRASOUND: Real-time sonographic evaluation of the gravid uterus is performed utilizing transabdominal and endovaginal technique. There is a living intrauterine gestation. heart rate is 135 beats per minute. Amniotic fluid appears within normal limits, EKTA 12.9. S/D ratio 3.78. RI 0.74. position is transverse with head towards the maternal right side. Placenta is posterior with no previa or abruption. Electronically Signed by Anshu Norris MD 02/04/2019 09:57 A
== END 2019-01-31 18:09 | disposition home or self-care (01) ==
LOC: M ED 15:11
DX: O9A.212 Injury, poisoning and certain other consequences of external causes complicating pregnancy, second trimester (principal); S00.03XA Contusion of scalp, initial encounter; W01.0XXA Fall on same level from slipping, tripping and stumbling without subsequent striking against object, initial encounter; Y92.89 Other specified places as the place of occurrence of the external cause; Y99.0 Civilian activity done for income or pay; Z3A.16 16 weeks gestation of pregnancy

== ENCOUNTER 2019-02-08 17:42 | Emergency (ER) | payer OTHER ==
[~2019-02-08] VITALS: Ht 157.5 cm; Wt 97.0 kg
[~2019-02-08 17:42] MED LIST changes: +ONDA4TAB5 PO
[2019-02-08] MEDS ORDERED: ONDA4TAB6 (17:51)
[2019-02-08] MEDS ORDERED: NS 1,000 ML IV ONE (18:30)
[2019-02-08] MEDS: ACETAMINOPHEN TAB 650MG DOSE (2X325MG) PO ONE ×2 (18:31→19:29)
[2019-02-08 18:56] LABS: BASO % 0.2 % (0.0-1.0); EOS # 0.1 10^3/uL (0.0-0.50); HEMATOCRIT 36.4 % (36.0-47.0); LYMPH # 1.7 10^3/uL (1.5-6.5); LYMPH % 17.6 % (24.0-44.0); MEAN CORPUSCULAR VOLUME 81.8 fl (80.0-96.0); MONO # 0.5 10^3/uL (0.0-0.8); MONO % 4.8 % (0.0-5.0); NEUTROPHILS # 7.5 10^3/uL (1.8-7.7); PLATELET COUNT, AUTOMATED 351 10^3/uL (150-450); RED BLOOD COUNT 4.45 10^6/uL (4.00-5.40); WHITE BLOOD COUNT 9.8 10^3/uL (4.0-10.0)
[2019-02-08 19:10] LABS: BLOOD UREA NITROGEN 9 MG/DL (7-18); C REACTIVE PROTEIN QUANTITATIV 1.64 MG/DL (0.00-0.30); CARBON DIOXIDE LEVEL 26 MEQ/L (21-32); CHLORIDE LEVEL 107 MEQ/L (98-107); CREATININE FOR GFR 0.55 MG/DL (0.55-1.30); GLOMERULAR FILTRATION RATE > 60.0 (>60); GLUCOSE, FASTING 85 MG/DL (70-100); POTASSIUM SERUM 4.1 MEQ/L (3.5-5.1); SODIUM LEVEL 140 MEQ/L (136-145)
[2019-02-08 19:41] LABS: ERYTHROCYTE SEDIMENTATION RATE 32 mm/hr (0-20)
[2019-02-08 20:49] VITALS: BP 129/75
[2019-02-08] MEDS ORDERED: KEFL500C17 PO (20:51)
== END 2019-02-08 21:03 | disposition home or self-care (01) ==
LOC: M ED 17:42
DX: O99.89 Other specified diseases and conditions complicating pregnancy, childbirth and the puerperium (principal); R51 Headache; R78.81 Bacteremia; Z3A.18 18 weeks gestation of pregnancy

== ENCOUNTER 2019-02-11 02:45 | Emergency (ER) | payer OTHER ==
[~2019-02-11] VITALS: Ht 157.5 cm; Wt 113.6 kg
[~2019-02-11 02:45] MED LIST changes: +KEFL500C17 PO; +ONDA4TAB6
[2019-02-11] MEDS ORDERED: ACET-683 PO (02:51)
[2019-02-11] MEDS ORDERED: ACETAMINOPHEN TAB 650MG DOSE (2X325MG) PO ONE (07:30)
[2019-02-11 07:46] LABS: BASO % 0.3 % (0.0-1.0); EOS % 0.2 % (0.0-3.0); HEMATOCRIT 35.4 % (36.0-47.0); HEMOGLOBIN 11.9 g/dl (12.0-15.5); LYMPH # 1.1 10^3/uL (1.5-6.5); LYMPH % 8.5 % (24.0-44.0); MEAN CORPUSCULAR HEMOGLOBIN 27.9 pg (27.0-33.0); MEAN CORPUSCULAR HGB CONC 33.6 g/dl (32.0-36.5); MEAN CORPUSCULAR VOLUME 83.1 fl (80.0-96.0); MONO # 0.6 10^3/uL (0.0-0.8); MONO % 4.5 % (0.0-5.0); NEUTROPHILS # 11.4 10^3/uL (1.8-7.7); PLATELET COUNT, AUTOMATED 296 10^3/uL (150-450); RED BLOOD COUNT 4.26 10^6/uL (4.00-5.40); WHITE BLOOD COUNT 13.2 10^3/uL (4.0-10.0)
[2019-02-11 08:04] LABS: BLOOD UREA NITROGEN 5 MG/DL (7-18); CALCIUM LEVEL 8.9 MG/DL (8.5-10.1); CARBON DIOXIDE LEVEL 25 MEQ/L (21-32); CHLORIDE LEVEL 105 MEQ/L (98-107); CREATININE FOR GFR 0.47 MG/DL (0.55-1.30); GLOMERULAR FILTRATION RATE > 60.0 (>60); GLUCOSE, FASTING 102 MG/DL (70-100); POTASSIUM SERUM 3.9 MEQ/L (3.5-5.1); SODIUM LEVEL 137 MEQ/L (136-145)
[2019-02-11] MEDS ORDERED: AUGM875T28 PO (08:24)
[2019-02-11 08:38] VITALS: BP 99/56
== END 2019-02-11 09:08 | disposition home or self-care (01) ==
LOC: M ED 02:45
DX: O99.89 Other specified diseases and conditions complicating pregnancy, childbirth and the puerperium (principal); K08.89 Other specified disorders of teeth and supporting structures; K13.79 Other lesions of oral mucosa; O23.40 Unspecified infection of urinary tract in pregnancy, unspecified trimester; Z79.899 Other long term (current) drug therapy

== ENCOUNTER → 2019-02-12 | Outpatient (CLI) | payer OTHER ==
[~2019-02-12] MED LIST changes: +ACET-683 PO; +AUGM875T28 PO
--- NOTE | 2019-02-12 10:23 | REP ---
OBSTETRIC SONOGRAPHY: HISTORY: Supervision of for anatomy. FINDINGS: Scanning through the gravid uterus demonstrates a viable single intrauterine gestation in a transverse, head to the maternal right lie. motion is observed and heart rate is recorder 156 beats per minute. A posterior grade 1 placenta is seen without evidence of previa. Amniotic fluid is subjectively normal. Closed cervical length measures 4.1 cm viewed transabdominally. No extrauterine abnormalities observed. The placental umbilical cord insertion is somewhat peripheral. No anomaly is seen. The following anatomic structures are less than optimally seen due to position : nose and lips, four-chamber heart with outflow tract views, kidneys, and spine. The following additional anatomic structures are identified and felt to be unremarkable: cranium, choroid plexus, cavum, cerebellum and posterior fossa, diaphragm, left-sided stomach, abdominal wall cord insertion, three-vessel cord, urinary bladder, upper and lower extremities. Biometry Chart: BPD 3.9 cm = 18 weeks 0 days HC 15.3 cm = 18 weeks 2 days AC 12.9 cm = 18 weeks 3 days FL 2.7 cm = 18 weeks 1 day HL 0.7 cm = 18 weeks 6 days HC/AC ratio normal 1.19 Cephalic index normal 0.70. Estimated weight 231 grams, 0 pounds 8 ounces, 44th percentile for 18 weeks 2 days. IMPRESSION: Viable single intrauterine gestation 18 weeks 2 days by today's composite sonographic criteria. KJ by today's sonography July 14, 2019. anatomic survey less than complete, as above, due to position. Electronically Signed by Nelson Quintana MD 02/12/2019 11:13 A
== END ==
LOC: M RAD 08:01
PROVIDERS: ATTEND Advanced Practice Midwife
DX: Z34.82 Encounter for supervision of other normal pregnancy, second trimester (principal); Z3A.18 18 weeks gestation of pregnancy

== ENCOUNTER → 2019-04-22 | Outpatient (CLI) | payer OTHER ==
--- NOTE | 2019-04-23 11:59 | REP ---
Clinical: Anatomical evaluation. Comparison: 03/17/2019 . Findings: Examination demonstrates a single live intrauterine in cephalic presentation. motion is identified by technologist. Placenta is noted fundal and grade grade II without evidence for placenta previa or abruption. Amniotic fluid volume is normal. Cervix measures 2.9 cm in length and appears closed. No evidence for nuchal cord. Gestational age by LMP 28 weeks 1 day with KJ 07/14/2019 . Gestational age by current measurements 28 weeks 2 days with KJ 07/13/2019 . FHR equals 128 beats per minute. Estimated weight 1235 grams ( 51st percentile). Amniotic fluid index: 15.2 cm Anatomical assessment demonstrates normal structures including cranium, choroid plexus, cavum, cerebellum/posterior fossa, lungs, diaphragm, stomach, cord insertion/three-vessel cord, kidneys/bladder, spine, and extremities. Impression: Single live intrauterine in cephalic presentation demonstrating appropriate interval growth. In conjunction with prior examination anatomical assessment is complete and normal. Electronically Signed by Kashif Bradley MD 04/23/2019 03:50 A
== END ==
LOC: M RAD 10:15
PROVIDERS: ATTEND Advanced Practice Midwife
DX: Z34.82 Encounter for supervision of other normal pregnancy, second trimester (principal); Z3A.28 28 weeks gestation of pregnancy

== ENCOUNTER 2019-04-29 06:35 | Outpatient (CLI) | payer OTHER ==
[~2019-04-29] VITALS: Ht 157.5 cm; Wt 98.0 kg
[~2019-04-29 06:35] MED LIST changes: +ONDA-83 PO; -ONDA4TAB5 PO
[2019-04-29 06:56] VITALS: BP 114/62
[2019-04-29 08:36] VITALS: BP 112/70
--- NOTE | 2019-04-29 16:59 | IPNPDOC ---
Text Note Date of Service The patient was seen on 04/29/19. NOTE Subjective: Patient is a 24-year-old female who is a at 29.1 weeks gestation with an KJ of 07/14/19 based off of her LMP and consistent with her first trimester ultrasound. She initiated care in her first trimester with [facility]. Her has been uncomplicated. She presents to L&D after working last night with complaints of pain at her umbilicus. The pain started last night and it was sharp and shooting only with touch. She reports that her pain is gone now since she has been in L&D. Past pregnancies: March 2017 of a living male weighting 8 lbs 14 oz at 40.2 weeks gestation Medical history: asthma as a child; varicella as a child; history of abnormal pap Surgical history: none Family history: diabetes Social history: ; denies being a smoker; reports history of heroin use but has not used in many years; denies history of alcohol use or abuse; history of HPV and chlamydia Objective: VS: see below. FHR is 120, moderate variability, positive accelerations, no decelerations. Contractions occasionally lasting 30-40 seconds. Patient is very tired and falling asleep while assessing at bedside. Respiratory: regular rate with no use of accessory muscles. Abdomen: gravid and non-tender to touch. Assessment: IUP at 29.1 weeks gestation, Category I FHR tracing, periumbilical tenderness/pain Plan: Patient discharged to home. Reviewed comfort measures. Reviewed acces to care, kick count, labor signs, and danger signs to report. She is to follow-up with routine OB care. VS,Fishbone, I+O VS, Fishbone, I+O Vital Signs Date Time Temp Pulse Resp B/P (MAP) Pulse Ox O2 Delivery O2 Flow Rate FiO2 04/29/19 08:36 97.1 83 18 112/70 (84) ANNAMARIA DIAZ CNM Apr 29, 2019 16:59
== END 2019-04-29 09:20 | disposition home or self-care (01) ==
LOC: M LDO 06:35
PROVIDERS: ATTEND Advanced Practice Midwife
DX: O26.893 Other specified pregnancy related conditions, third trimester (principal); R10.33 Periumbilical pain; Z3A.29 29 weeks gestation of pregnancy

== ENCOUNTER → 2019-05-08 | Outpatient (CLI) | payer OTHER ==
[~2019-05-08] MED LIST changes: -ONDA-83 PO; +ONDA4TAB5 PO
[2019-05-08 13:41] LABS: HEMATOCRIT 30.4 % (36.0-47.0); HEMOGLOBIN 9.8 g/dl (12.0-15.5); MEAN CORPUSCULAR HGB CONC 32.2 g/dl (32.0-36.5); MEAN CORPUSCULAR VOLUME 83.7 fl (80.0-96.0); PLATELET COUNT, AUTOMATED 334 10^3/uL (150-450); RED BLOOD COUNT 3.63 10^6/uL (4.00-5.40); WHITE BLOOD COUNT 10.3 10^3/uL (4.0-10.0)
== END ==
LOC: M SMT 09:12
PROVIDERS: ATTEND Advanced Practice Midwife
DX: Z34.82 Encounter for supervision of other normal pregnancy, second trimester (principal)

== ENCOUNTER → 2019-06-05 | Outpatient (CLI) | payer OTHER | LOC: M LAB 07:59 | PROVIDERS: ATTEND Specialist | DX: R73.02 Impaired glucose tolerance (oral) (principal) ==

== ENCOUNTER → 2019-06-20 | Outpatient (REF) | payer OTHER | LOC: M LAB REF 16:40 | PROVIDERS: ATTEND Advanced Practice Midwife | DX: Z34.83 Encounter for supervision of other normal pregnancy, third trimester (principal) ==

== ENCOUNTER 2019-07-01 18:44 | Outpatient (CLI) | payer OTHER ==
[~2019-07-01] VITALS: Ht 157.5 cm; Wt 102.6 kg
[2019-07-01 19:05] VITALS: BP 134/75
== END 2019-07-01 19:44 | disposition home or self-care (01) ==
LOC: M LDO 18:44
PROVIDERS: ATTEND Obstetrics & Gynecology
DX: O47.1 False labor at or after 37 completed weeks of gestation (principal); Z3A.38 38 weeks gestation of pregnancy

== ENCOUNTER 2019-07-14 15:44 | Inpatient (IN) | payer OTHER ==
[2019-07-14] VITALS (7 sets, daily range): BP systolic 93–123; BP diastolic 54–72
[~2019-07-14] VITALS: Ht 157.5 cm; Wt 103.8 kg
[2019-07-14] MEDS ORDERED: CLIN300C5 PO (16:05)
[2019-07-14 17:13] LABS: HEMATOCRIT 30.1 % (36.0-47.0); HEMOGLOBIN 9.1 g/dl (12.0-15.5); MEAN CORPUSCULAR HEMOGLOBIN 23.2 pg (27.0-33.0); MEAN CORPUSCULAR HGB CONC 30.2 g/dl (32.0-36.5); MEAN CORPUSCULAR VOLUME 76.8 fl (80.0-96.0); PLATELET COUNT, AUTOMATED 328 10^3/uL (150-450); RED BLOOD COUNT 3.92 10^6/uL (4.00-5.40); WHITE BLOOD COUNT 9.8 10^3/uL (4.0-10.0)
[2019-07-14] MEDS: miSOPROStol 50 MCG 1/2 TAB (S0191) PO SCH (19:30)
--- NOTE | 2019-07-14 20:45 | HPEPDOC ---
Obstetrical History & Physical General Date of Admission Jul 14, 2019 at 15:44 Primary Care Physician: ANNAMARIA DIAZ CNM History of Present Illness Patient is a 24-year-old female who is a at 40 weeks gestation with an KJ of 07/14/19 based off of her LMP and consistent with her first trimester ul trasound. She initiated care in her first trimester with AWP. Her has been complicated by obesity. She presents to L&D for an elective IOL. She reports active movement. She declines leaking of fluid, vaginal bleeding or painful contractions. Chief Complaint: Induction of labor Information Provided By: Patient Age: 24 : 2 Term: 1 Pre-term: 0 Abortions: 0 Livin Care Care: Good Care Dating Final EDC: Jul 14, 2019 Final EDC by: LMP LMP: Oct 07, 2018 EGA at Admission: 40 Antepartum Course Diagnos(e)s Obesity Height (inches): 62 Pre- weight (lbs.): 223 Admission Weight (lbs.): 229 Change in Weight (lbs.): 6 Past Medical History Past Obstetrical History : Past Obstetrical History: Primgravida Gestation: 40.2 Type of Delivery: Spontaneous Vaginal Del. 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 BREAST: . ABDOMEN: Gravid and non-tender to touch. FETUS: Is vertex (VTX) by sterile vaginal examination (SVE), fetus is vertex (VTX) by Lito. HEART RATE: Regular rate and rhythm. LUNGS: Clear to auscultation (CTA). EXTREMITIES: Generalized edema. No clonus. Deep tendon reflexes (DTRs) + 1. Vital Signs/I&O Vital Signs Date Time Temp Pulse Resp B/P (MAP) Pulse Ox O2 Delivery O2 Flow Rate FiO2 07/14/19 19:28 97.6 93 18 117/56 (76) 07/14/19 16:07 98 Room Air Laboratory Data 24H LABS Laboratory Tests 2 07/14/19 15:57: Serology Scanned Report Hepatitis B Testing 07/14/19 17:01: Nucleated Red Blood Cells % (auto) 0.0 CBC/BMP Laboratory Tests 07/14/19 17:01 Pertinent Laboratoy Data Blood Type: O+ RBC Antibody Screen: Negative HIV: Negative Hepatitis B: Negative Hepatitis C: Negative Rapid Plasma Reagin: Nonreactive Rubella: Immune Chlamydia/Gonorrhea: Negative Group B Streptococcus: Negative Quad Screen Test: Declined Glucose Tolerance Test: 145 Vaginal Examination Dilation: 1cm Effacement: other (75%) Station: -2 Cervical Consistency: Soft Cervical Position: Middle Presentation: Cephalic presentation Position: Vertex (occiput) Assessment Heart Rate (FHR): 125 Variability: Moderate Accelerations: Positive Decelerations: None Tocometer Contractions: Yes Frequency: irregular Assessment/Plan Assessment IUP at 40 weeks gestation GBS negative Category I FHR tracing elective IOL Plan Admit to L&D. OOB ad ester Diet: regular then switch to clear diet when IV Pitocin or desire for epidural. Group B Streptococcus (GBS) negative. Labs and intravenous (IV) per unit protocol. Counseled on Cytotec and Pitocin for induction of labor. Anesthesia consult per patient's request. Lactated Ringers (LR): Bolus 800 mL prior to epidural, then at 125 mL/hr. Anticipate cervical ripening. ANNAMARIA DIAZ CNM Jul 14, 2019 20:45
[2019-07-15] VITALS (48 sets, daily range): BP systolic 99–147; BP diastolic 55–82
[2019-07-15] MEDS: miSOPROStol 50 MCG 1/2 TAB (S0191) PO SCH (00:41)
[2019-07-15] MEDS ORDERED: PROMETHAZINE INJ 25 MG/ML VIAL (J2550) IV ONE (04:00)
[2019-07-15] MEDS ORDERED: BUTORPHANOL 2 MG/ML INJ (J0595) IV ONE (04:00)
[2019-07-15] MEDS: LR 1,000 ML IV SCH ×4 (04:19→14:58)
[2019-07-15] MEDS ORDERED: FENTANYL 2MCG/ML ROPIVACAINE 0.2% IN 0.9% NACL 100ML IVBAG As Ordered ONE (06:04)
[2019-07-15] MEDS: FENTANYL/ROPIVACAINE/NACL BAG 100 ML EPIDURAL SCH ×2 (06:39→13:44)
--- NOTE | 2019-07-15 06:41 | IPNPDOC ---
Obstetrical Progress Note Date of Service Jul 15, 2019 Subjective Patient requesting an epidural. Objective Vital Signs Date Time Temp Pulse Resp B/P (MAP) Pulse Ox O2 Delivery O2 Flow Rate FiO2 07/15/19 04:19 98.5 71 18 132/82 (99) 07/14/19 16:07 98 Room Air Assessment Heart Rate (FHR): 125 Variability: Moderate Accelerations: Positive Decelerations: None Heart Rate Tracing: Category I Tocometer Contractions: Yes Frequency: regular Sterile Vaginal Examination Dilation: 3 cm Effacement (%): 90% Station: -2 Postion/Presentation: Cephalic presentation Assessment and Plan Age: 24 EGA at Admission: 40 Weeks & Days 40.1 Status: Reassuring Group B Streptococcus: Negative Anticipate: Vaginal Delivery Additional Comments Anesthesia consulted. Will start IV Pitocin for continuation of induction. ANNAMARIA DIAZ CNM Jul 15, 2019 06:41
[2019-07-15] MEDS ORDERED: OXYTOCIN DRIP 30 UNITS in IV 1 EA IV SCH (07:00)
[2019-07-15] MEDS ORDERED: EPIDURAL/PCA KEYS XX PRN (08:00)
[2019-07-15] MEDS ORDERED: ePHEDrine SULFATE 25 MG/5 ML(5MG/ML) SYRINGE IV PRN (08:00)
[2019-07-15] MEDS ORDERED: ONDANSETRON 4MG/2ML VIAL (J2405) IV PRN ×2 (08:00→16:30)
[2019-07-15] MEDS ORDERED: NALOXONE INJ 0.4 MG/1 ML VIAL (J2310) IV PRN (08:00)
[2019-07-15] MEDS ORDERED: REFRIGERATOR IV KEYS XX PRN (08:00)
[2019-07-15] MEDS ORDERED: diphenhydrAMINE INJ 50MG/ML VIAL (J1200) IV PRN (08:00)
[2019-07-15] MEDS ORDERED: EPIDURAL COMMENT XX SCH (08:00)
[2019-07-15] MEDS ORDERED: MEASLES,MUMPS,RUBELLA VACCINE INJ (MMR-II) (90707) SC SCH (16:30)
[2019-07-15] MEDS ORDERED: METHYLERGONOVINE MALEATE 0.2 MG TAB PO PRN (16:30)
[2019-07-15] MEDS ORDERED: RHOGAM 300 MCG (1500 IU) INJ (J2790) IM SCH (16:30)
[2019-07-15] MEDS ORDERED: ACETAMINOPHEN 500 MG TAB PO PRN (16:30)
[2019-07-15] MEDS ORDERED: IBUPROFEN 600 MG TAB PO PRN (16:30)
[2019-07-15] MEDS ORDERED: DIBUCAINE 1% OINTMENT 30GM TOP PRN (16:30)
[2019-07-15] MEDS ORDERED: OXYTOCIN DRIP 30 UNITS in IV 1 EA IV ONE (16:30)
[2019-07-15] MEDS: IBUPROFEN 800 MG TAB PO PRN (19:02)
[2019-07-16 06:00] VITALS: BP 102/65
[2019-07-16] MEDS: ACETAMINOPHEN TAB 650MG DOSE (2X325MG) PO PRN (08:25)
[2019-07-16] MEDS: PRENATAL VITAMINS CHEWABLE TABLET PO SCH (09:00)
--- NOTE | 2019-07-16 11:52 | DN ---
DATE OF DELIVERY: 07/15/2019 PREDELIVERY DIAGNOSIS: 39 weeks, labor induction. POSTDELIVERY DIAGNOSIS: Delivered. PROCEDURE: Spontaneous vaginal delivery. DIRECTOR PHARMACEUTICAL: Nikita Lopez MD ANESTHESIA: Epidural. ESTIMATED BLOOD LOSS: 300 mL. FINDINGS: 8 pound 10 ounce (3910 gram) female . score 8 and 9. DELIVERY SUMMARY: After approximately 1 hour and 50 minutes second stage, the patient spontaneously delivered an 8 pound 10 ounce female infant, score 8 and 9, under epidural anesthesia. There was no nuchal cord. The shoulders delivered with ease. The infant was handed to mother and cried immediately. The cord was doubly clamped and cut. The placenta delivered spontaneously and appeared to be intact. The patient received intravenous (IV) pitocin immediately after delivery of the placenta. There were no vaginal lacerations present. Sponge counts were correct.
[2019-07-16] MEDS: DOCUSATE SODIUM 100 MG CAP PO PRN (17:42)
[2019-07-16] MEDS: IBUPROFEN 800 MG TAB PO PRN (17:43)
[2019-07-16 18:00] VITALS: BP 127/76
[2019-07-17 06:00] VITALS: BP 121/61
[2019-07-17 06:38] LABS: HEMATOCRIT 26.9 % (36.0-47.0); HEMOGLOBIN 7.9 g/dl (12.0-15.5); MEAN CORPUSCULAR HEMOGLOBIN 22.7 pg (27.0-33.0); MEAN CORPUSCULAR HGB CONC 29.4 g/dl (32.0-36.5); MEAN CORPUSCULAR VOLUME 77.3 fl (80.0-96.0); PLATELET COUNT, AUTOMATED 284 10^3/uL (150-450); RED BLOOD COUNT 3.48 10^6/uL (4.00-5.40); WHITE BLOOD COUNT 15.2 10^3/uL (4.0-10.0)
[2019-07-17 06:46] LABS: AMORPHOUS SEDIMENT SMALL (NEGATIVE); APPEARANCE, URINE CLEAR (CLEAR); BACTERIA, URINE AUTO 1+ (NEGATIVE); BILIRUBIN, URINE AUTO NEGATIVE (NEGATIVE); BLOOD, URINE BLOOD 3+ (NEGATIVE); COLOR, URINE YELLOW (YELLOW); GLUCOSE, URINE (UA) AUTO NEGATIVE (NEGATIVE); KETONE, URINE AUTO NEGATIVE (NEGATIVE); LEUKOCYTE ESTERASE, URINE AUTO 2+ (NEGATIVE); MUCUS, URINE SMALL (NEGATIVE); NITRITE, URINE AUTO POSITIVE (NEGATIVE); PROTEIN, URINE AUTO 1+ mg/dL (NEGATIVE); RBC, URINE AUTO TNTC /HPF (0-3); SPECIFIC GRAVITY URINE AUTO 1.012 (1.002-1.035); SQUAMOUS EPITHELIAL CELL UR AU 2 /HPF (0-6); UROBILINOGEN, URINE AUTO 0.2 mg/dL (0.0-2.0); WBC, URINE AUTO 43 /HPF (0-3)
[2019-07-17 07:03] LABS: BLOOD UREA NITROGEN 7 MG/DL (7-18); CALCIUM LEVEL 8.4 MG/DL (8.5-10.1); CARBON DIOXIDE LEVEL 24 MEQ/L (21-32); CHLORIDE LEVEL 108 MEQ/L (98-107); CREATININE FOR GFR 0.56 MG/DL (0.55-1.30); GLOMERULAR FILTRATION RATE > 60.0 (>60); GLUCOSE, FASTING 95 MG/DL (70-100); PHOSPHORUS LEVEL 3.2 MG/DL (2.5-4.9); POTASSIUM SERUM 4.2 MEQ/L (3.5-5.1); SODIUM LEVEL 138 MEQ/L (136-145)
[2019-07-17] MEDS: LR 1,000 ML IV SCH ×3 (07:52→23:07)
[2019-07-17] MEDS: AMPICILLIN SOD/SULBACTAM SOD 3 GM in D5W MINI-BAG PLUS 100 ML IV SCH ×3 (08:06→20:01)
[2019-07-17] MEDS: PRENATAL VITAMINS CHEWABLE TABLET PO SCH (08:07)
[2019-07-17 11:09] VITALS: BP 126/76
[2019-07-17] MEDS: IBUPROFEN 800 MG TAB PO PRN ×2 (14:05→23:08)
[2019-07-17 14:12] VITALS: BP 128/78
[2019-07-17 17:56] VITALS: BP 117/68
[2019-07-17] MEDS: DOCUSATE SODIUM 100 MG CAP PO PRN (20:01)
[2019-07-17 21:55] VITALS: BP 111/61
[2019-07-18] MEDS: AMPICILLIN SOD/SULBACTAM SOD 3 GM in D5W MINI-BAG PLUS 100 ML IV SCH ×2 (02:00→08:22)
[2019-07-18 02:07] VITALS: BP 115/68
[2019-07-18 06:20] VITALS: BP 122/76
[2019-07-18] MEDS: LR 1,000 ML IV SCH (06:41)
[2019-07-18] MEDS: ACETAMINOPHEN TAB 650MG DOSE (2X325MG) PO PRN (08:22)
[2019-07-18] MEDS: PRENATAL VITAMINS CHEWABLE TABLET PO SCH (09:00)
[2019-07-18 10:00] VITALS: BP 124/69
== END 2019-07-18 12:50 | disposition home or self-care (01) | DRG 560 ==
LOC: M LDI 15:44 → M OBS 07-15 18:33
PROVIDERS: ADMIT Advanced Practice Midwife; ATTEND Specialist
PROC: 3E0P7GC Introduction of Other Therapeutic Substance into Female Reproductive, Via Natural or Artificial Opening (ICD-10-PCS; 2019-07-14)
PROC: 10E0XZZ Delivery of Products of Conception, External Approach (ICD-10-PCS; principal; 2019-07-15)
DX: O99.214 Obesity complicating childbirth (principal); E66.9 Obesity, unspecified; Z3A.40 40 weeks gestation of pregnancy; Z37.0 Single live birth

== ENCOUNTER → 2019-11-03 | Outpatient (REF) | payer OTHER ==
[~2019-11-03] MED LIST changes: +CLIN300C5 PO; +ONDA-83 PO; -ONDA4TAB5 PO
== END ==
LOC: M SFHCWAGY 11:24
PROVIDERS: ATTEND Specialist
DX: Z01.419 Encounter for gynecological examination (general) (routine) without abnormal findings (principal)

== ENCOUNTER 2020-02-20 12:00 | Emergency (ER) | payer OTHER ==
[~2020-02-20] VITALS: Ht 157.5 cm; Wt 97.6 kg
[2020-02-20 12:00] VITALS: BP 127/83
[2020-02-20] MEDS ORDERED: ACETAMINOPHEN 325 MG TAB PO ONE (12:45)
== END 2020-02-20 13:01 | disposition home or self-care (01) ==
LOC: M ED 12:00
DX: S00.03XA Contusion of scalp, initial encounter (principal); W20.8XXA Other cause of strike by thrown, projected or falling object, initial encounter; Y99.0 Civilian activity done for income or pay; Y93.89 Activity, other specified; F17.200 Nicotine dependence, unspecified, uncomplicated

== ENCOUNTER 2020-05-17 01:07 | Emergency (ER) | payer OTHER ==
[~2020-05-17] VITALS: Ht 157.5 cm; Wt 97.0 kg
[2020-05-17 01:14] VITALS: BP 112/67
[2020-05-17] MEDS ORDERED: IBUP200C25 PO (01:18)
[2020-05-17] MEDS ORDERED: AUGM875T28 PO (01:42)
[2020-05-17] MEDS ORDERED: IBUPROFEN 800 MG TAB PO ONE (01:45)
== END 2020-05-17 02:18 | disposition home or self-care (01) ==
LOC: M ED 01:07
DX: K08.89 Other specified disorders of teeth and supporting structures (principal); Z87.891 Personal history of nicotine dependence

== ENCOUNTER → 2020-06-02 | Outpatient (REF) | payer OTHER ==
[~2020-06-02] MED LIST changes: +IBUP200C25 PO
== END ==
LOC: M PLALAB 13:38
PROVIDERS: ATTEND Specialist
DX: N92.6 Irregular menstruation, unspecified (principal)

== ENCOUNTER → 2020-06-04 | Outpatient (CLI) | payer OTHER | LOC: M PLALAB 11:51 | PROVIDERS: ATTEND Specialist | DX: N92.6 Irregular menstruation, unspecified (principal) ==

== ENCOUNTER → 2020-06-09 | Outpatient (REF) | payer OTHER | LOC: M PLALAB 12:52 | PROVIDERS: ATTEND Specialist | DX: N92.6 Irregular menstruation, unspecified (principal) ==

== ENCOUNTER → 2020-06-15 | Outpatient (REF) | payer OTHER ==
[2020-06-15 14:35] LABS: HEMATOCRIT 41.8 % (36.0-47.0); HEMOGLOBIN 12.9 g/dl (12.0-15.5); MEAN CORPUSCULAR HEMOGLOBIN 25.6 pg (27.0-33.0); MEAN CORPUSCULAR HGB CONC 30.9 g/dl (32.0-36.5); MEAN CORPUSCULAR VOLUME 83.1 fl (80.0-96.0); PLATELET COUNT, AUTOMATED 339 10^3/uL (150-450); RED BLOOD COUNT 5.03 10^6/uL (4.00-5.40); WHITE BLOOD COUNT 9.4 10^3/uL (4.0-10.0)
[2020-06-15 15:29] LABS: HIV 1&2 SCREEN CENTAUR NEGATIVE (NEGATIVE)
== END ==
LOC: M PLALAB 09:31
PROVIDERS: ATTEND Specialist
DX: Z34.81 Encounter for supervision of other normal pregnancy, first trimester (principal)

== ENCOUNTER → 2021-04-07 | Outpatient (CLI) | payer OTHER ==
[~2021-04-07] MED LIST changes: -CLIN300C5 PO; +CLIN300C6 PO
== END ==
LOC: M WHC 16:00
PROVIDERS: ATTEND Obstetrics & Gynecology
DX: Z36.89 Encounter for other specified antenatal screening (principal); Z3A.16 16 weeks gestation of pregnancy

== ENCOUNTER → 2021-05-04 | Outpatient (CLI) | payer OTHER ==
--- NOTE | 2021-05-04 15:34 | REP ---
INDICATION: ANATOMY. COMPARISON: None. TECHNIQUE: Transabdominal obstetric sonography. FINDINGS: Scanning through the gravid uterus demonstrates a viable single intrauterine gestation in cephalic lie. motion is observed and heart rate is recorded at 143 beats per minute. A anterior placenta is seen, grade 1, without evidence of placenta previa. Closed cervical length is measured at 4.0 cm transabdominally. No extrauterine abnormality is observed. Amniotic fluid is subjectively normal. The following anatomic structures are identified felt to be unremarkable: cranium and intracranial contents, face and profile nose and lips, lungs, diaphragm, left-sided stomach, abdominal wall cord insertion, right and left kidney, urinary bladder, upper and lower extremities, three-vessel cord. Four-chamber heart, left and right ventricular outflow tract views, and spine are less than optimally visualized due to position. Biometry chart: BPD 4.6 cm, 20 weeks 0 days Head circumference 17.9 cm, 20 weeks 2 days Abdominal circumference 15.0 cm, 20 weeks 2 days Femur length 3.4 cm, 20 weeks 4 days Humeral length 3.1 cm, 20 weeks 3 days HC AC ratio normal 1.19 Cephalic index normal 0.70 Estimated weight 352 g, 0 lb 12 oz, 69th percentile for 20 weeks 0 days IMPRESSION: Viable single intrauterine gestation at 20 weeks 2 days by today's composite sonographic criteria. KJ by today's sonography September 19, 2021. No complication identified. Expected gestational age estimate based on known KJ of 21 September 2021 is 20 weeks 0 days. Four-chamber heart, outflow tract views, and spine views less than optimally achieved today due to position. <Electronically signed by Patricio Quintana > 05/04/21 [id number]
== END ==
LOC: M WHC 14:27
PROVIDERS: ATTEND Obstetrics & Gynecology
DX: Z36.89 Encounter for other specified antenatal screening (principal); Z3A.16 16 weeks gestation of pregnancy

== ENCOUNTER → 2021-06-13 | Outpatient (CLI) | payer OTHER ==
[2021-06-13 16:22] LABS: HEMATOCRIT 31.7 % (36.0-47.0); HEMOGLOBIN 10.3 g/dl (12.0-15.5); MEAN CORPUSCULAR HEMOGLOBIN 27.1 pg (27.0-33.0); MEAN CORPUSCULAR HGB CONC 32.5 g/dl (32.0-36.5); MEAN CORPUSCULAR VOLUME 83.4 fl (80.0-96.0); PLATELET COUNT, AUTOMATED 321 10^3/uL (150-450); WHITE BLOOD COUNT 9.7 10^3/uL (4.0-10.0)
[2021-06-13 17:33] LABS: HEPATITIS C VIRUS ABY INDEX < 0.0 INDEX (<0.8); HIV 1&2 SCREEN CENTAUR NEGATIVE (NEGATIVE)
[2021-06-13 18:11] LABS: GC DNA AMPLIFICATION NEGATIVE (NEGATIVE)
== END ==
LOC: M PLALAB 13:08
PROVIDERS: ATTEND Advanced Practice Midwife
DX: Z34.81 Encounter for supervision of other normal pregnancy, first trimester (principal)

== ENCOUNTER → 2021-06-13 | Outpatient (CLI) | payer OTHER ==
--- NOTE | 2021-06-13 20:20 | REP ---
INDICATION: F/U ANATOMY COMPARISON: 05/04/2021 TECHNIQUE: Transabdominal obstetrical ultrasound with color Doppler evaluation. FINDINGS: Examination demonstrates a single live intrauterine in variable presentation. motion is identified by technologist. Placenta is noted anterior and grade 1 without evidence for placenta previa or abruption. Amniotic fluid volume is normal. Cervix measures 3.6 cm in length and appears closed.. Selected gestational age: 25 weeks 5 days with KJ 09/21/2021. Gestational age by current measurements 26 weeks 5 days with KJ 09/14/2021. FHR equals 143 beats per minute. Estimated weight 970 grams (80thpercentile). Anatomical assessment demonstrates normal structures including spine, and cardiac ventricular outflow tracts. Proper evaluation of the four-chamber heart is limited due to positioning and maternal body habitus. IMPRESSION: Single live intrauterine demonstrating appropriate interval growth. Continued limited evaluation of the heart. Anatomical assessment is otherwise normal. <Electronically signed by Kashif Bradley > 06/13/[id number]
== END ==
LOC: M WHC 13:45
PROVIDERS: ATTEND Specialist
DX: Z36.9 Encounter for antenatal screening, unspecified (principal); Z3A.26 26 weeks gestation of pregnancy

== ENCOUNTER → 2021-06-27 | Outpatient (CLI) | payer OTHER ==
[~2021-06-27] MED LIST changes: +CLIN-250 PO; -CLIN300C6 PO
[2021-06-27 18:52] LABS: HEMATOCRIT 31.8 % (36.0-47.0); HEMOGLOBIN 10.3 g/dl (12.0-15.5); MEAN CORPUSCULAR HEMOGLOBIN 26.5 pg (27.0-33.0); MEAN CORPUSCULAR HGB CONC 32.4 g/dl (32.0-36.5); MEAN CORPUSCULAR VOLUME 81.7 fl (80.0-96.0); PLATELET COUNT, AUTOMATED 356 10^3/uL (150-450); RED BLOOD COUNT 3.89 10^6/uL (4.00-5.40); WHITE BLOOD COUNT 10.7 10^3/uL (4.0-10.0)
[2021-06-27 23:34] LABS: GC DNA AMPLIFICATION NEGATIVE (NEGATIVE)
== END ==
LOC: M PLALAB 14:21
PROVIDERS: ATTEND Specialist
DX: Z34.82 Encounter for supervision of other normal pregnancy, second trimester (principal)

== ENCOUNTER → 2021-07-18 | Outpatient (CLI) | payer OTHER ==
--- NOTE | 2021-07-18 13:30 | REP ---
INDICATION: F/U ANATOMY HEART COMPARISON: 06/13/2021 TECHNIQUE: Transabdominal obstetrical ultrasound with color Doppler evaluation. FINDINGS: Examination demonstrates a single live intrauterine in cephalic presentation. motion is identified by technologist. Placenta is noted anterior and grade 1 without evidence for placenta previa or abruption. Amniotic fluid volume is normal. Cervix measures 3.0 cm in length and appears closed.. Selected gestational age: 30 weeks 5 days with KJ 09/21/2021. Gestational age by current measurements 32 weeks 3 days with KJ 09/09/2021. FHR equals 136 beats per minute. Estimated weight 1947 grams (87thpercentile). Anatomical assessment demonstrates normal structures including heart and cardiac ventricular outflow tracts. IMPRESSION: Single live intrauterine in cephalic presentation demonstrating appropriate interval growth. In conjunction with prior examination anatomical assessment is complete and normal. <Electronically signed by Kashif Bradley > 07/18/21 [id number]
== END ==
LOC: M WHC 12:36
PROVIDERS: ATTEND Specialist
DX: Z36.9 Encounter for antenatal screening, unspecified (principal); Z3A.32 32 weeks gestation of pregnancy

== ENCOUNTER → 2021-08-25 | Outpatient (REF) | payer OTHER | LOC: M SFHCWAGY 12:47 | PROVIDERS: ATTEND Specialist | DX: Z34.83 Encounter for supervision of other normal pregnancy, third trimester (principal) ==

== ENCOUNTER → 2021-11-13 | Outpatient (REF) | payer OTHER | LOC: M LAB REF 17:40 | PROVIDERS: ATTEND Physician Assistant Medical | DX: R50.9 Fever, unspecified (principal); R05.9 Cough, unspecified; R53.83 Other fatigue ==

== ENCOUNTER → 2022-08-09 | Outpatient (CLI) | payer OTHER ==
[~2022-08-09] MED LIST changes: +ACET500P3 PO; +PENI500T PO
== END ==
LOC: M PLALAB 13:12
PROVIDERS: ATTEND Obstetrics & Gynecology
DX: N92.6 Irregular menstruation, unspecified (principal)

== ENCOUNTER 2023-07-07 09:22 | Emergency (ER) | payer OTHER ==
[~2023-07-07] VITALS: Ht 157.5 cm; Wt 113.0 kg
[2023-07-07] MEDS ORDERED: CLOM50TA28 (09:33)
[2023-07-07 10:22] LABS: HEMATOCRIT 38.3 % (36.0-47.0); HEMOGLOBIN 12.1 g/dl (12.0-15.5); MEAN CORPUSCULAR HEMOGLOBIN 24.9 pg (27.0-33.0); MEAN CORPUSCULAR HGB CONC 31.6 g/dl (32.0-36.5); PLATELET COUNT, AUTOMATED 353 10^3/uL (150-450); RED BLOOD COUNT 4.85 10^6/uL (4.00-5.40); WHITE BLOOD COUNT 8.8 10^3/uL (4.0-10.0)
[2023-07-07 10:32] LABS: ALBUMIN 3.9 G/DL (3.2-5.2); ALKALINE PHOSPHATASE 118 U/L (46-116); ALT/SGPT 20 U/L (7.0-40); AST/SGOT 10 U/L (<34); BILIRUBIN,DIRECT 0.1 MG/DL (<0.4); BILIRUBIN,TOTAL 0.4 MG/DL (0.3-1.2); BLOOD UREA NITROGEN 9 MG/DL (9-23); CALCIUM LEVEL 9.1 MG/DL (8.5-10.1); CARBON DIOXIDE LEVEL 27 MMOL/L (20-31); CHLORIDE LEVEL 105 MMOL/L (98-107); CREATININE FOR GFR 0.63 MG/DL (0.55-1.30); GLOMERULAR FILTRATION RATE > 60.0 (>60); GLUCOSE, FASTING 96 MG/DL (60-100); POTASSIUM SERUM 4.1 MMOL/L (3.5-5.1); SALICYLATE LEVEL < 3.0 MG/DL (<30); SODIUM LEVEL 142 MMOL/L (136-145); TOTAL PROTEIN 7.1 G/DL (5.7-8.2)
[2023-07-07 10:35] LABS: HCG, SERUM QUALITATIVE NEGATIVE (NEGATIVE)
[2023-07-07] MEDS ORDERED: LIDOCAINE 2% W/ EPINEPHRINE 1.7 ML DENTAL INJ SM ONE (10:40)
[2023-07-07] MEDS ORDERED: BENZOCAINE 20% GEL 9GM TUBE (ANBESOL MAX STRENGTH) TOP ONE (10:40)
[2023-07-07] MEDS ORDERED: ISOVUE-370 76% 100ML VIAL As Ordered ONE (10:42)
[2023-07-07] MEDS ORDERED: dexAMETHasone 20MG/5ML VIAL IV ONE (10:50)
[2023-07-07] MEDS ORDERED: AMPICILLIN SOD/SULBACTAM SOD 3 GM in D5W MINI-BAG PLUS 100 ML IV ONE (10:50)
[2023-07-07] MEDS ORDERED: KETO10TAB PO (12:51)
[2023-07-07] MEDS ORDERED: AMOX875T2 PO (12:54)
[2023-07-07 13:07] VITALS: BP 139/72; TEMP 98; O2SAT 98
== END 2023-07-07 13:10 | disposition home or self-care (01) ==
LOC: M ED 09:22
DX: K02.9 Dental caries, unspecified (principal); K01.1 Impacted teeth; R22.1 Localized swelling, mass and lump, neck; R68.84 Jaw pain; Z79.899 Other long term (current) drug therapy
CPT/HCPCS: 64450; 70491; 80048; 80076; 80143; 84703; 85027; 96365; 96375; 99283; J0295; J1100; Q9967

== ENCOUNTER 2024-01-11 19:54 | Emergency (ER) | payer OTHER ==
[~2024-01-11] VITALS: Ht 157.5 cm; Wt 116.9 kg
[~2024-01-11 19:54] MED LIST changes: +AMOX875T2 PO; +CLOM50TA28; +KETO10TAB PO
[2024-01-11] MEDS: IBUPROFEN 600MG TAB PO ONE (23:48)
[2024-01-11] MEDS: AMOXICILLIN 500 MG CAP PO ONE (23:48)
[2024-01-11 23:51] VITALS: BP 137/68; TEMP 98.7; O2SAT 98
[2024-01-12] MEDS ORDERED: IBUP-1022 PO (00:04)
[2024-01-12] MEDS ORDERED: AMOX500C PO (00:04)
== END 2024-01-12 00:10 | disposition home or self-care (01) ==
LOC: M ED 19:54
DX: K04.7 Periapical abscess without sinus (principal); J45.909 Unspecified asthma, uncomplicated; F17.290 Nicotine dependence, other tobacco product, uncomplicated; Z79.1 Long term (current) use of non-steroidal anti-inflammatories (NSAID); Z79.2 Long term (current) use of antibiotics; Z79.899 Other long term (current) drug therapy

== ENCOUNTER 2024-03-08 17:54 | Inpatient (IN) | payer OTHER ==
[~2024-03-08] VITALS: Ht 157.5 cm; Wt 113.4 kg
[~2024-03-08 17:54] MED LIST changes: +AMOX500C PO; +ONDA-282; -ONDA4TAB6
[2024-03-08 18:47] LABS: BASO % 0.2 % (0.0-1.0); EOS # 0.2 10^3/uL (0.0-0.5); EOS % 1.2 % (0.0-3.0); HEMATOCRIT 35.1 % (36.0-47.0); HEMOGLOBIN 10.8 g/dl (12.0-15.5); LYMPH # 1.8 10^3/uL (1.5-5.0); LYMPH % 14.6 % (24.0-44.0); MEAN CORPUSCULAR HEMOGLOBIN 22.9 pg (27.0-33.0); MEAN CORPUSCULAR HGB CONC 30.8 g/dl (32.0-36.5); MEAN CORPUSCULAR VOLUME 74.4 fl (80.0-96.0); MONO # 0.9 10^3/uL (0.0-0.8); NEUTROPHILS # 9.4 10^3/uL (1.5-8.5); NEUTROPHILS % 76.7 % (36.0-66.0); PLATELET COUNT, AUTOMATED 457 10^3/uL (150-450); RED BLOOD COUNT 4.72 10^6/uL (4.00-5.40); WHITE BLOOD COUNT 12.3 10^3/uL (4.0-10.0)
[2024-03-08 18:55] LABS: ERYTHROCYTE SEDIMENTATION RATE 83 mm/hr (0-20)
[2024-03-08 19:16] LABS: HCG, SERUM QUALITATIVE NEGATIVE (NEGATIVE)
[2024-03-08] MEDS ORDERED: ISOVUE-370 76% 100ML VIAL As Ordered ONE (19:44)
[2024-03-08] MEDS: KETOROLAC 30 MG/ML 1ML VIAL IV ONE (19:59)
[2024-03-08] MEDS: METHOCARBAMOL 1,000 MG/10 ML VIAL IV ONE (19:59)
[2024-03-08] MEDS: CEFEPIME HCL 2 GM in D5W MINI-BAG PLUS 50 ML IV ONE (19:59)
[2024-03-08] MEDS: AMPICILLIN SOD/SULBACTAM SOD 3 GM in D5W MINI-BAG PLUS 100 ML IV ONE (22:17)
[2024-03-08] MEDS: dexAMETHasone 20MG/5ML VIAL IV ONE (22:17)
[2024-03-08] MEDS: MORPHINE 2 MG/ML 1ML VIAL IV ONE (22:19)
[2024-03-08] MEDS ORDERED: HOME MED LIST COMPLETE! XX SCH (23:00)
[2024-03-09] VITALS (9 sets, daily range): BP systolic 118–148; BP diastolic 60–87; TEMP 96.8–99.3; O2SAT 95–99
[2024-03-09] MEDS: ACETAMINOPHEN TAB 650MG DOSE (2X325MG) PO PRN (01:51)
[2024-03-09 02:35] LABS: ALBUMIN 3.5 G/DL (3.2-5.2); ALKALINE PHOSPHATASE 131 U/L (46-116); ALT/SGPT 36 U/L (7.0-40); AST/SGOT 26 U/L (<34); BILIRUBIN,TOTAL 0.3 MG/DL (0.3-1.2); BLOOD UREA NITROGEN 11 MG/DL (9-23); CALCIUM LEVEL 9.7 MG/DL (8.5-10.1); CARBON DIOXIDE LEVEL 24 MMOL/L (20-31); CHLORIDE LEVEL 108 MMOL/L (98-107); CREATININE FOR GFR 0.56 MG/DL (0.55-1.30); GLOMERULAR FILTRATION RATE > 60.0 (>60); GLUCOSE, FASTING 121 MG/DL (60-100); POTASSIUM SERUM 4.3 MMOL/L (3.5-5.1); SODIUM LEVEL 139 MMOL/L (136-145)
[2024-03-09] MEDS: AMPICILLIN SOD/SULBACTAM SOD 3 GM in D5W MINI-BAG PLUS 100 ML IV SCH ×2 (04:01→17:38)
[2024-03-09] MEDS: MORPHINE 4 MG/ML 1ML VIAL IV PRN (07:13)
[2024-03-09 08:36] LABS: HEMATOCRIT 34.8 % (36.0-47.0); HEMOGLOBIN 10.6 g/dl (12.0-15.5); MEAN CORPUSCULAR HEMOGLOBIN 22.8 pg (27.0-33.0); MEAN CORPUSCULAR HGB CONC 30.5 g/dl (32.0-36.5); MEAN CORPUSCULAR VOLUME 74.8 fl (80.0-96.0); PLATELET COUNT, AUTOMATED 459 10^3/uL (150-450); RED BLOOD COUNT 4.65 10^6/uL (4.00-5.40); WHITE BLOOD COUNT 10.8 10^3/uL (4.0-10.0)
[2024-03-09] MEDS: DOCUSATE SODIUM 100MG CAPSULE PO SCH (08:51)
[2024-03-09] MEDS: LR 1,000 ML IV SCH ×2 (08:51→14:05)
[2024-03-09] MEDS ORDERED: LIDOCAINE 2% 100MG/5ML SDV (FOR ANES.) As Ordered ONE (12:33)
[2024-03-09] MEDS ORDERED: ROCURONIUM BROMIDE 50MG/5ML VIAL As Ordered ONE (12:33)
[2024-03-09] MEDS ORDERED: propofoL 200 MG/20 ML VIAL As Ordered ONE (12:33)
[2024-03-09] MEDS ORDERED: fentaNYL 100 MCG/2 ML INJECTION As Ordered ONE (12:34)
[2024-03-09] MEDS ORDERED: MIDAZOLAM INJ 2MG/2ML VIAL As Ordered ONE (12:34)
[2024-03-09] MEDS ORDERED: PHENYLEPHRINE 0.5% NASAL SPRAY 15 ML As Ordered ONE (12:36)
[2024-03-09] MEDS ORDERED: LIDOCAINE 2% JELLY 6ML SYRINGE As Ordered ONE (12:37)
[2024-03-09] MEDS: UNASYN 3GM VIAL As Ordered ONE (13:00)
[2024-03-09] MEDS: LIDOCAINE 2% W/ EPINEPHRINE 1.7 ML DENTAL INJ As Ordered ONE (13:00)
[2024-03-09 13:03] LABS: HEMOGLOBIN A1c 5.2 % (4.0-6.0)
[2024-03-09] MEDS ORDERED: ONDANSETRON 4MG 2ML VIAL As Ordered ONE (13:11)
[2024-03-09] MEDS ORDERED: SUGAMMADEX SODIUM 500 MG/5 ML VIAL (BRIDION) As Ordered ONE (13:20)
[2024-03-09] MEDS ORDERED: ACETAMINOPHEN 1000MG 100ML IV BAG As Ordered ONE (13:26)
[2024-03-09] MEDS ORDERED: ONDANSETRON 4MG 2ML VIAL IV PRN (14:05)
[2024-03-09] MEDS ORDERED: fentaNYL 100 MCG/2 ML INJECTION IV PRN (14:05)
[2024-03-09] MEDS ORDERED: diphenhydrAMINE 50MG/ML VIAL IV PRN (14:05)
[2024-03-09] MEDS ORDERED: MEPERIDINE 25 MG/ML 1ML VIAL IV PRN (14:05)
[2024-03-09] MEDS ORDERED: METOCLOPRAMIDE INJ 10MG/2ML VIAL IV PRN (14:05)
[2024-03-09] MEDS: oxyCODONE 5MG TAB PO PRN (14:45)
[2024-03-09] MEDS: HYDROMORPHONE HCL 0.5 MG/ 0.5 ML SYRINGE IV PRN (14:45)
[2024-03-09] MEDS: PERCOCET 5MG/325MG TAB PO PRN (20:25)
[2024-03-10] VITALS: BP 110/63; TEMP 98.9; O2SAT 97
[2024-03-10 04:00] VITALS: BP 101/58; TEMP 97.3; O2SAT 98
[2024-03-10 08:00] VITALS: BP 103/59; TEMP 97.3; O2SAT 98
[2024-03-10 08:24] LABS: HEMATOCRIT 33.3 % (36.0-47.0); HEMOGLOBIN 9.9 g/dl (12.0-15.5); MEAN CORPUSCULAR HEMOGLOBIN 22.6 pg (27.0-33.0); MEAN CORPUSCULAR HGB CONC 29.7 g/dl (32.0-36.5); MEAN CORPUSCULAR VOLUME 75.9 fl (80.0-96.0); PLATELET COUNT, AUTOMATED 501 10^3/uL (150-450); RED BLOOD COUNT 4.39 10^6/uL (4.00-5.40)
[2024-03-10 08:52] LABS: ALKALINE PHOSPHATASE 106 U/L (46-116); ALT/SGPT 21 U/L (7.0-40); AST/SGOT < 8 U/L (<34); BILIRUBIN,TOTAL 0.3 MG/DL (0.3-1.2); BLOOD UREA NITROGEN 8 MG/DL (9-23); CALCIUM LEVEL 8.9 MG/DL (8.5-10.1); CARBON DIOXIDE LEVEL 29 MMOL/L (20-31); CHLORIDE LEVEL 107 MMOL/L (98-107); CREATININE FOR GFR 0.62 MG/DL (0.55-1.30); GLOMERULAR FILTRATION RATE > 60.0 (>60); GLUCOSE, FASTING 116 MG/DL (60-100); POTASSIUM SERUM 4.5 MMOL/L (3.5-5.1); SODIUM LEVEL 141 MMOL/L (136-145); TOTAL PROTEIN 6.2 G/DL (5.7-8.2)
[2024-03-10] MEDS: PERCOCET 5MG/325MG TAB PO PRN (09:24)
[2024-03-10 12:00] VITALS: BP 102/52; TEMP 97.4; O2SAT 98
[2024-03-10 16:00] VITALS: BP 111/57; TEMP 97.4; O2SAT 98
[2024-03-10] MEDS ORDERED: AMOX875T2 PO (17:45)
[2024-03-10] MEDS ORDERED: PROB250C PO (17:45)
[2024-03-10] MEDS ORDERED: ACET1TAB55 PO (17:45)
[2024-03-10] MEDS ORDERED: TRAM50TA2 PO (17:45)
== END 2024-03-10 19:04 | disposition home or self-care (01) | DRG 114 ==
LOC: M ED 17:54 → M ED INP 23:18 → M PED 03-09 01:25
PROVIDERS: ADMIT Internal Medicine; ATTEND Internal Medicine
PROC: 0N9T0ZZ Drainage of Right Mandible, Open Approach (ICD-10-PCS; 2024-03-09)
PROC: 0CDXXZ1 Extraction of Lower Tooth, Multiple, External Approach (ICD-10-PCS; principal; 2024-03-09 11:30)
DX: K04.7 Periapical abscess without sinus (principal); Z68.42 Body mass index [BMI] 45.0-49.9, adult; E66.01 Morbid (severe) obesity due to excess calories; J45.909 Unspecified asthma, uncomplicated; F32.A Depression, unspecified; L68.0 Hirsutism; F17.290 Nicotine dependence, other tobacco product, uncomplicated; K02.9 Dental caries, unspecified; R59.0 Localized enlarged lymph nodes; K12.2 Cellulitis and abscess of mouth; Z87.828 Personal history of other (healed) physical injury and trauma

== ENCOUNTER → 2024-06-24 | Outpatient (CLI) | payer OTHER, MEDICAID ==
[~2024-06-24] MED LIST changes: +ACET1TAB55 PO; +PROB250C PO; +TRAM50TA2 PO
== END ==
LOC: M RAD 16:20
PROVIDERS: ATTEND Physician Assistant
DX: R60.0 Localized edema (principal)

== ENCOUNTER → 2024-06-24 | Outpatient (REF) | payer OTHER, MEDICAID ==
[2024-06-24 17:07] LABS: APPEARANCE, URINE HAZY (CLEAR); BACTERIA, URINE AUTO NEGATIVE (NEGATIVE); BILIRUBIN, URINE AUTO NEGATIVE (NEGATIVE); BLOOD, URINE BLOOD NEGATIVE (NEGATIVE); COLOR, URINE YELLOW (YELLOW); GLUCOSE, URINE (UA) AUTO NEGATIVE (NEGATIVE); KETONE, URINE AUTO NEGATIVE (NEGATIVE); LEUKOCYTE ESTERASE, URINE AUTO NEGATIVE (NEGATIVE); MUCUS, URINE SMALL (NEGATIVE); NITRITE, URINE AUTO NEGATIVE (NEGATIVE); PROTEIN, URINE AUTO NEGATIVE (NEGATIVE); RBC, URINE AUTO 0 /HPF (0-3); SPECIFIC GRAVITY URINE AUTO 1.025 (1.002-1.035); SQUAMOUS EPITHELIAL CELL UR AU 7 /HPF (0-6); UROBILINOGEN, URINE AUTO 0.2 mg/dL (0.0-2.0); WBC, URINE AUTO 1 /HPF (0-3)
[2024-06-24 18:25] LABS: Trichomonas vaginalis (AMP) NOT DETECTED (NEGATIVE)
[2024-06-24 18:48] LABS: GC DNA AMPLIFICATION NEGATIVE (NEGATIVE)
[2024-06-25 13:00] LABS: ALBUMIN 3.8 G/DL (3.2-5.2); ALKALINE PHOSPHATASE 153 U/L (35-104); ALT/SGPT 21 U/L (7.0-40); AST/SGOT < 8 U/L (<34); BILIRUBIN,TOTAL 0.2 MG/DL (0.3-1.2); BLOOD UREA NITROGEN 18 MG/DL (9-23); CALCIUM LEVEL 9.5 MG/DL (8.5-10.1); CARBON DIOXIDE LEVEL 30 MMOL/L (20-31); CHLORIDE LEVEL 109 MMOL/L (98-107); CHOLESTEROL LEVEL 192 MG/DL (<200); CHOLESTEROL RISK RATIO 3.29 (<5); CREATININE FOR GFR 0.59 MG/DL (0.55-1.30); GLOMERULAR FILTRATION RATE > 60.0 (>60); GLUCOSE, FASTING 86 MG/DL (60-100); HDL CHOLESTEROL 58.2 MG/DL (>40); LDL CHOLESTEROL 110.2 MG/DL (<100); NON-HDL-C 133.8 MG/DL; POTASSIUM SERUM 4.1 MMOL/L (3.5-5.1); SODIUM LEVEL 142 MMOL/L (136-145); TOTAL 25(OH) VITAMIN D 18.8 NG/ML (20.0-100.0); TOTAL PROTEIN 7.2 G/DL (5.7-8.2); TRIGLYCERIDES LEVEL 118 MG/DL (<150)
[2024-06-25 13:01] LABS: THYROID STIMULATING HORMONE 2.123 uIU/ML (0.55-4.78)
[2024-06-25 13:10] LABS: HEMOGLOBIN A1c 5.3 % (4.0-6.0)
== END ==
LOC: M LAB REF 16:26
PROVIDERS: ATTEND Physician Assistant
DX: R60.0 Localized edema (principal); Z11.9 Encounter for screening for infectious and parasitic diseases, unspecified

== ENCOUNTER → 2024-07-21 | Outpatient (CLI) | payer OTHER | LOC: M RAD 15:57 | PROVIDERS: ATTEND Physician Assistant | DX: M54.50 Low back pain, unspecified (principal) ==

== ENCOUNTER → 2024-07-29 | Outpatient (CLI) | payer OTHER | LOC: M RAD 12:00 | PROVIDERS: ATTEND Physician Assistant | DX: R60.0 Localized edema (principal) ==

== ENCOUNTER 2025-07-22 15:38 | Emergency (ER) | payer OTHER ==
[~2025-07-22] VITALS: Ht 157.5 cm; Wt 114.5 kg
[~2025-07-22 15:38] MED LIST changes: -IBUP-1022 PO; +IBUP600T42 PO
[2025-07-22] MEDS: MECLIZINE 25 MG TABLET PO ONE (16:27)
[2025-07-22 16:56] LABS: BASO # 0.0 10^3/uL (0.0-0.2); BASO % 0.4 % (0.0-1.0); EOS # 0.5 10^3/uL (0.0-0.5); EOS % 4.9 % (0.0-3.0); LYMPH # 1.8 10^3/uL (1.5-5.0); LYMPH % 18.5 % (24.0-44.0); MONO # 0.7 10^3/uL (0.0-0.8); MONO % 6.9 % (2.0-8.0); NEUTROPHILS # 6.7 10^3/uL (1.5-8.5); NEUTROPHILS % 69.0 % (36.0-66.0); PLATELET COUNT, AUTOMATED 358 10^3/uL (150-450)
[2025-07-22 17:19] VITALS: BP 112/75; TEMP 99.2; O2SAT 100
[2025-07-22 17:23] LABS: ALT/SGPT 13 U/L (7.0-40); AST/SGOT 12 U/L (<34); CALCIUM LEVEL 8.8 MG/DL (8.5-10.1); CARBON DIOXIDE LEVEL 27 MMOL/L (20-31); CHLORIDE LEVEL 103 MMOL/L (98-107); CK-MB VALUE MASS < 1.0 NG/ML (<3.6); CPK CREATINE PHOSPHOKINASE 49 U/L (34-145); CREATININE FOR GFR 0.79 MG/DL (0.55-1.30); GLOMERULAR FILTRATION RATE > 90.0 (>60); POTASSIUM SERUM 4.1 MMOL/L (3.5-5.1); SODIUM LEVEL 141 MMOL/L (136-145)
[2025-07-22] MEDS ORDERED: MECL-209 PO (17:34)
== END 2025-07-22 17:38 | disposition home or self-care (01) ==
LOC: M ED 15:38
DX: R42 Dizziness and giddiness (principal)